=== PATIENT | female | born 1950 | race Caucasian/White ===

== ENCOUNTER 2017-01-31 20:16 | Inpatient (IN) | payer MEDICARE, MEDICAID ==
[2017-01-31] MEDS ORDERED: Fentanyl 100 MCG/2 ML VIAL ONE (20:20)
[2017-01-31 21:12] LABS: Bilirubin Negative (Negative); Blood, Urine Negative (Negative); Glucose, Urine (Dipstick) Negative (Negative); Ketone, Urine Negative (Negative); Nitrite Negative (Negative); Protein, Urine (Dipstick) 100 mg/dL (Neg-Trace)
[2017-01-31 21:14] LABS: #Eosinphils 0.1 thou/uL (0.0-0.7); #Lymphocytes 1.5 thou/uL (1.20-3.40); #Monocytes 0.7 thou/uL (0.11-0.59); #Neutrophils 8.4 thou/uL (1.40-6.50); %Basophils 0.4 % (0.0-1.0); %Lymphocytes 13.8 % (21.0-51.0); %Monocytes 6.2 % (0.0-10.0); Hematocrit 46.4 % (36.0-47.0); Mean Platelet Volume 9.4 fL (7.4-10.4); Red Blood Cell (RBC) Count 5.13 mill/uL (4.20-5.40); White Blood Cell (WBC) Count 10.6 thou/uL (4.8-10.8)
[2017-01-31 21:14] LABS: Bacteria/HPF None Seen HPF (None Seen); Hyaline Casts/LPF 0-3 HYALINE CAST LPF (0-3 Hyaline); RBC/HPF 0-3 HPF (0-3); Squamous Epithelial 0-3 HPF (0-3); WBC/HPF 0-3 HPF (0-3)
[2017-01-31] MEDS ORDERED: Hydrocortisone Sod Succ/PF 100 mg/2 ml Vial ONE (21:18)
[2017-01-31] MEDS ORDERED: cefOXitin Sodium 2 GM, Syringe 1 ML in Sterile Water 10 ML SLOW IVP SCH (21:30)
[2017-01-31] MEDS ORDERED: Hydrocortisone Sod Succ/PF 100 mg/2 ml Vial IVP SCH (21:30)
[2017-01-31] MEDS ORDERED: Ondansetron HCl/PF 4 MG/2 ML Vial ONE (21:31)
--- NOTE | 2017-01-31 21:37 | RAD ---
CHEST 1 VIEW: Date: 01/31/17 HISTORY: Emergency exam. COMPARISON: Chest 1 view dated 09/12/11. FINDINGS: Heart size is enlarged. Air space opacities both lower lobes. No pneumothorax. IMPRESSION: Cardiomegaly with bibasilar air space opacities may be reflective of early edema and atelectasis. Fol low-up two views of chest may be beneficial. POS: H
[2017-01-31] MEDS ORDERED: Fentanyl 250 MCG/5 ML VIAL ONE (21:42)
[2017-01-31] MEDS ORDERED: Midazolam HCl 5 mg/5 ml Vial ONE (21:42)
[2017-01-31 22:21] LABS: Calcium 8.8 mg/dL (7.8-10.44); Chloride 104 mmol/L (98-107)
[2017-01-31 22:22] LABS: Globulin 3.9 g/dL (2.4-3.5); Lactic Acid - Sepsis 2.2 mmol/L (0.5-2.2); Protein, Total 7.6 g/dL (6.0-8.3)
[2017-01-31 22:23] LABS: Anion Gap 14 mmol/L (10-20); Carbon Dioxide 22 mmol/L (23-31)
[2017-01-31] MEDS ORDERED: Propofol 200 MG/20 ML VIAL ONE (22:23)
[2017-01-31] MEDS ORDERED: Lidocaine 2% PF 10 ML AMP (For Epidural Use) ONE (22:23)
[2017-01-31] MEDS ORDERED: Succinylcholine Chloride 20 MG/ML 10 ml SYRINGE FS ONE (22:23)
[2017-01-31] MEDS ORDERED: ePHEDrine/0.9% NaCl/PF SYRINGE 50 mg/10 ml ONE (22:23)
[2017-01-31 22:24] LABS: Bilirubin, Total 0.2 mg/dL (0.2-1.2)
[2017-01-31 22:25] LABS: Alkaline Phosphatase 82 U/L (40-150)
[2017-01-31 22:26] LABS: BUN (Urea Nitrogen) 12 mg/dL (9.8-20.1); Calc. Creatinine Clearance 0 mL/min (70-130); Estimated GFR-MDRD 52
[2017-01-31 22:27] LABS: AST (SGOT) 10 U/L (5-34)
[2017-01-31 22:28] LABS: ALT (SGPT) Less than 7 U/L (8-55)
[2017-01-31 22:32] LABS: Troponin I Less than 0.010 ng/mL (< 0.028)
--- NOTE | 2017-02-01 01:30 | HP ---
CHIEF COMPLAINT: Abdominal pain, nausea, and vomiting. HISTORY OF PRESENT ILLNESS: Ms. Bernard is a 66-year-old woman with a longstanding ventral incision al hernia which suddenly became much more painful and hard about an hour before her presentation to [facility] emergency room. She had episodes of nausea and vomiting at home, but the pain has not gotten any better. Previously, her bowel habits had been normal. She denies fevers or chills. She uses a whee lchair for mobility, although she is able to transfer independently since she has weakness and balanc e control problems since a stroke a few years ago. PAST MEDICAL HISTORY: Ovarian cancer, rheumatoid arthritis, hypertension, cerebrovascular disease, h yperlipidemia, hypothyroidism, and tobacco abuse. PAST SURGICAL HISTORY: Hysterectomy and bilateral oophorectomy, appendectomy, and some superficial c yst removal. SOCIAL HISTORY: The patient still smokes a pack a day and has for over 30 years. She does not drink or use illicit drugs. FAMILY HISTORY: Noncontributory. OUTPATIENT MEDICATIONS: Include Synthroid 200 mcg p.o. daily, prednisone 5 mg p.o. daily, metoprolol 25 mg p.o. b.i.d., hydroxychloroquine 200 mg p.o. b.i.d., tramadol 50 mg p.o. t.i.d., atorvastatin 1 0 mg p.o. daily, amlodipine 10 mg p.o. daily, fluoxetine 40 mg p.o. daily, and leflunomide 20 mg p.o. daily. ALLERGIES: She has no known drug allergies. PHYSICAL EXAMINATION: VITAL SIGNS: Temperature 97.8, heart rate 77, blood pressure 178/91, 93% saturated on room air, margaret thing 14 times a minute. GENERAL: Reveals a morbidly obese woman who appears older than her stated age in obvious discomfort. She is not flushed or toxic in appearance. She is not jaundiced or icteric. HEENT: Unremarkable. NECK: Supple without lymphadenopathy or thyroid nodules. HEART: Regular in its rate and rhythm without murmurs, rubs, or gallops. LUNGS: Clear to auscultation bilaterally. ABDOMEN: Has a large protuberant ventral incisional hernia which is extremely hard and tender to the touch. This is not reducible and attempts by the ER doctor to reduce it with sedation were unsucces sful as well. The skin overlying the central part of the hernia appears slightly dusky. The lateral abdomen is relatively soft and only mildly tender. EXTREMITIES: Cold but with normal capillary refill. I do not appreciate pedal pulses. She has rheu matoid nodules on both elbows. NEUROLOGIC: No focal deficits, but the patient reports diffuse weakness and poor balance making it d ifficult for her to ambulate more than a few steps at baseline. PSYCHIATRIC: Alert and oriented but having difficulty focusing on questions due to pain. LABORATORY DATA: Lab work is still pending. Chest x-ray shows cardiomegaly, no free air, no pulmona ry infiltrates. EKG shows a right bundle branch block and left ventricular hypertrophy, but no acute ST changes. ASSESSMENT: Incarcerated hernia on physical examination, very suspicious for bowel presence within t he hernia and with nausea and vomiting also suggesting an obstructive component. PLAN: I have recommended emergent repair in the operating room with possible bowel resection if the bowel is compromised and possible ostomy if the colon is compromised. The hernia will likely need to be repaired primarily if there is bowel presence, although mesh repair could be considered if no com promised tissue is identified. She is at very high risk for hernia recurrence with or without mesh d ue to her morbid obesity and prednisone use. Other risks include, but are not limited to bleeding, i nfection, risks of anesthesia, damage to nearby structures including bowel, blood vessels, and other structures which may be in the hernia, need for reoperation, and need for mesh explantation in the ev ent of infection. She understands and accepts these risks and wishes to proceed. She has been poste d emergently for the operating room and Mefoxin and Solu-Cortef have been ordered communication consultant to the OR.
[2017-02-01] MEDS ORDERED: Fentanyl 100 MCG/2 ML VIAL ONE (01:35)
[2017-02-01] MEDS ORDERED: Midazolam HCl 2 mg/2 ml Vial ONE (01:35)
[2017-02-01] MEDS ORDERED: Propofol 1,000 MG/100 ML VIAL IV PRN (02:10)
[2017-02-01] MEDS ORDERED: DISCONTINUE PREVIOUS NARCOTIC PAIN MEDICATIONS AND BENZODIAZEPINES FS SCH (02:10)
[2017-02-01] MEDS ORDERED: Fentanyl 20 MCG/ML 250 ML IVPB SCH (02:10)
[2017-02-01] MEDS ORDERED: Lorazepam 2 MG/ML VIAL SLOW IVP PRN (02:10)
[2017-02-01] MEDS ORDERED: Morphine PF 1 MG/ML SYR IVP PRN (02:15)
[2017-02-01 02:27] LABS: Oxyhemoglobin 95.7 % (94.0-97.0); Sodium 139 mmol/L (135-148)
[2017-02-01 02:30] LABS: Mechanical Tidal Volume 500 ml; Mode SIMV; Pressure Support 10 cmH2O; Vent YES
[2017-02-01] MEDS: Sodium Chloride 0.9% 1,000 ML IV SCH ×4 (02:37→23:43)
[2017-02-01 03:17] LABS: #Lymphocytes 1.1 thou/uL (1.20-3.40); #Monocytes 0.6 thou/uL (0.11-0.59); #Neutrophils 16.4 thou/uL (1.40-6.50); %Basophils 0.1 % (0.0-1.0); %Eosinophils 0.1 % (0.0-10.0); %Lymphocytes 6.2 % (21.0-51.0); %Monocytes 3.4 % (0.0-10.0); Hematocrit 46.6 % (36.0-47.0); Mean Platelet Volume 8.2 fL (7.4-10.4); Red Blood Cell (RBC) Count 5.03 mill/uL (4.20-5.40); White Blood Cell (WBC) Count 18.2 thou/uL (4.8-10.8)
[2017-02-01] MEDS: Meropenem 1 GM in Sodium Chloride 0.9% 100 ML IVPB SCH ×3 (03:18→20:09)
[2017-02-01 03:52] LABS: Anion Gap 14 mmol/L (10-20); BUN (Urea Nitrogen) 12 mg/dL (9.8-20.1); Calc. Creatinine Clearance 78 mL/min (70-130); Calcium 8.2 mg/dL (7.8-10.44); Carbon Dioxide 21 mmol/L (23-31); Chloride 105 mmol/L (98-107); Estimated GFR-MDRD 43
--- NOTE | 2017-02-01 04:58 | PDOC.OP ---
Operative Note - Operative Note Operative Note: PROCEDURE: Transverse colectomy and proximal transverse colostomy, abdominal washout and repair of incarcerated strangulated ventral incisional hernia DATE OF PROCEDURE: 01/31/2017 SURGEON: Nathalie Otero M.D. PREOPERATIVE DIAGNOSES: Incarcerated ventral incisional hernia POSTOPERATIVE DIAGNOSIS: Incarcerated strangulated ventral incisional hernia with necrotic transverse colon which had perforated into the mesentery HISTORY: Patient is a 66-year-old morbidly obese woman with multiple medical problems who presented to the emergency room with severe abdominal pain nausea and vomiting of recent onset. She has a chronically incarcerated ventral incisional hernia that had become much more hard and painful a few hours before presentation. Recommendation was made to proceed emergently to the operating room for repair of her incarcerated hernia, since by palpation it appeared to have bowel in it. PROCEDURE IN DETAIL: After informed consent was obtained and appropriate preoperative antibiotics were administered the patient was taken to the operating room where she was placed in supine position and general endotracheal anesthesia was administered. She was prepped and draped in a standard sterile fashion and the midline incision overlying the incarcerated hernia was incised. Dissection was carried down to the hernia sac which was dissected free of the surrounding soft tissues. Colon was visible within the hernia sac as was omentum. The hernia sac was sharply incised and opened, and a foul odor encountered. The colon was found to have multiple dense adhesions to the hernia sac consistent with chronic incarceration. The proximal transverse colon appeared viable but the more distal transverse colon appeared ischemic. The adhesions were taken down carefully, leaving the hernia sac on the colon and omentum in some areas where a safe plane could not be developed. In this way the hernia sac was able to be dissected free of the colon and omentum down to the opening into the abdominal cavity. It became clear as the adhesions were taken down and the colon exposed that the distal transverse colon was frankly gangrenous and would need to be resected. The transition point between viable and nonviable colon was readily apparent and a CHAPARRITA stapler placed across the viable proximal colon and the colon divided at this level. The distal transverse colon within the hernia sac was viable and was also divided with the CHAPARRITA stapler. The mesentery of the ischemic bowel was then divided using LigaSure staying close to the colon wall. As the most necrotic central section was approached fecal staining of the mesentery was visible. On careful examination of the area it appeared that the necrotic colon had perforated into the mesentery itself. As the mesentery in this area was divided a large contained collection of stool within the mesenteric leaf was encountered and suctioned out. Due to the large amount of stool in this contained collection, there was concern that there could be another loop of gangrenous colon which was no longer in the hernia sac and which may have been reduced into the abdominal cavity. For this reason the fascia was incised, superior and inferior to the hernia sac, dividing several bridges of attenuated fascia and connecting multiple small ventral incisional hernias which contained omentum only. The area of contamination was completely evacuated and carefully examined and was found to be contained entirely within the mesentery. It extended almost down to the duodenal loop but did not involve the duodenum or any other loops of bowel. As much contaminated tissue as possible was excised. The area was carefully irrigated to clear taking care not to overfill the cavity and spill into the peritoneum. Once this area was clean, the remainder of the abdominal cavity was copiously irrigated with several liters of warm saline until all return was clear. The NG tube was confirmed to be in good position in the stomach. The liver was smooth to palpation, and the cecum and ascending and proximal transverse colon were normal to palpation and viable in appearance. The distal transverse colon and descending and sigmoid colon were normal to palpation and inspection as well although filled with stool. The small bowel was healthy in appearance with no significant adhesions. A HILL drain was placed into the pelvis and brought out through the left lower quadrant and attention turned to creation of the colostomy. A circular incision was made over the rectus sheath in the right upper quadrant and dissection carried down to the anterior rectus sheath which was incised in a cruciate manner. The muscles were split in the direction of their fibers and the posterior sheath likewise incised in a cruciate fashion. The transverse colon was brought out through the incision and confirmed to be in its correct orientation. This was secured with a [place] and attention turned to closure of the abdomen. The remaining omentum was brought down over the small intestine and Seprafilm placed between this and the anterior abdominal wall. The midline fascia was then closed with running loop continuous PDS suture with excellent technical result. The skin incision was irrigated copiously and the central part of the skin incision loosely reapproximated with 3-0 nylon sutures. The HILL drain was likewise secured with 3- 0 nylon suture. Moist saline soaked gauze placed into the subcutaneous space of the midline incision. This was then draped with another towel and attention turned to maturation of the colostomy. The colon was secured to the anterior rectus sheath circumferentially with Lembert sutures and the staple line excised. An everted miccosukee type colostomy was created and a colostomy appliance secured. The patient was taken intubated to the CCU with plans to extubate her tomorrow if she is stable. Blood loss was minimal and there were no complications. SPECIMEN: Strangulated incarcerated transverse colon and hernia sac
[2017-02-01] MEDS: Hydrocortisone Sod Succ/PF 100 mg/2 ml Vial IVP SCH ×4 (05:42→23:48)
--- NOTE | 2017-02-01 08:57 | RAD ---
PORTABLE AP CHEST XRAY: DATE: 02/01/17. HISTORY: Intubated. Followup evaluation. COMPARISON: 01/31/17. FINDINGS: There has been interval placement of an endotracheal tube with tip overlying the T4 vertebral body an d above the level of the raquel. Nasogastric tube has also been placed in the interim which courses into the left upper quadrant, but the tip is not imaged. The patient is rotated which accentuates th e mediastinal structures and cardiac silhouette, but the cardiac silhouette is probably enlarged. Th ere has been interval increase in perihilar interstitial opacities which may be related to pulmonary edema. There is increased density also present in the retrocardiac region of left lung base with sug gested blunting of the left lateral costophrenic angle. Some of these findings could be related to p atient rotation, but left pleural effusion is not entirely excluded. Vascular calcifications are pre sent in the thoracic aorta. No other interval change. IMPRESSION: 1. Interval placement of the endotracheal tube and nasogastric tube as described above. 2. Interval increase in perihilar interstitial opacities which would be related to pulmonary edema. Continued followup is suggested. 3. Increased density left lung base which could be related to volume loss and/or pleural effusion. POS: [facility]
[2017-02-01] MEDS ORDERED: FLU VACC TS2017-18 (>65YR) 0.5 ML SYRINGE IM ONE (09:00)
[2017-02-01] MEDS ORDERED: Prevnar 13-Val Conj/PF 0.5 ML SYRINGE IM ONE (09:00)
--- NOTE | 2017-02-01 09:08 | CON ---
DATE OF CONSULTATION: 02/01/2017 HISTORY: This is a 66-year-old morbidly obese female with multiple medical problems. She presented yesterday with incarcerated ventral hernia. She went to surgery. She was left intubated on the vent . Please see the surgeon's postop note. PAST MEDICAL HISTORY: She has multiple medical problems as outlined in her previous medical records includes longstanding history of rheumatoid arthritis on long-term steroids, ongoing tobacco abuse, h ypothyroidism, chronic ventral hernia, disabling arthritis wheelchair bound. Previous apparently cer ebrovascular accident. She has severe limitation to activity, in fact, she is wheelchair bound. PAST SURGICAL HISTORY: Hysterectomy, foot, appendix. MEDICATIONS FROM HOME: Tramadol 50, prednisone 5, Enalapril 25, levothyroxine 200, leflunomide 20, P laquenil 200, Prozac 40, atorvastatin 10, aspirin 81, amlodipine 10. She is now on meropenem and steroids. REVIEW OF SYSTEMS: Otherwise unremarkable. PHYSICAL EXAMINATION: GENERAL: Awake, alert, responsive. VITAL SIGNS: Blood pressure 105/64, respirations 18, pulse 80. CHEST: Chest revealed decreased breath sounds without any wheezing. CARDIAC: Normal S1, S2. ABDOMEN: Soft, no masses. LABORATORY: White count 18,000, H&H 14 and 46, platelet count 346. PO2 118, pCO2 56.23, creatinine 1.24, baseline creatinine is 1.0. X-rays shows cardiomegaly. IMPRESSION: 1. Status post lap for incarcerated ventral hernia. 2. Morbid obesity. 3. Severe deconditioning. 4. Chronic obstructive pulmonary disease. 5. Hypothyroidism. 6. Rheumatoid arthritis. PLAN: She will be weaned and extubated. I started neb treatments, supportive care. I will follow while in the ICU. Forty-five minutes critical care time.
[2017-02-01] MEDS: Pantoprazole 40 MG VIAL IVP SCH (09:12)
[2017-02-01] MEDS: Morphine PF 1 MG/ML SYR IV PRN ×5 (14:24→21:58)
[2017-02-01] MEDS ORDERED: Nitroglycerin 0.4 MG TAB (25 Tab Bottle) ONE (16:44)
[2017-02-01] MEDS ORDERED: Nitroglycerin 0.4 MG TAB (25 Tab Bottle) SL SCH (17:00)
--- NOTE | 2017-02-01 17:06 | PRG ---
DATE OF SERVICE: 02/01/2017 This afternoon she has developed chest pain. Her EKG did not show ST segment elevation which showed what appeared to be a junctional rhythm. She characterized her chest pain as 10/10. It is mainly ov er her left breast. When I examined her, she had diffuse pain over her left breast region extending downwards her abdomen. She also had midsternal chest pain to palpation. Her pain so far has not res ponded to morphine or nitroglycerin. I have asked Dr. Mccain and her associates to see the patient to make sure we were not missing anything cardiogenic in nature as the patient has multiple risk factors. Hopefully, this is just post-surgic al pain.
[2017-02-01 17:12] LABS: Troponin I 0.063 ng/mL (< 0.028)
[2017-02-01] MEDS: Enoxaparin Sodium 40 MG/0.4 ML SYRINGE SC SCH (20:09)
--- NOTE | 2017-02-01 23:30 | ADD-CON ---
ADDENDUM: DATE OF ADMISSION: 01/31/2017 DATE OF CONSULTATION: 02/01/2017 INDICATION FOR CONSULTATION: Chest pain in this 66-year-old female. HISTORY OF PRESENT ILLNESS: This is a very pleasant 66-year-old female, was seen by me a couple of y ears ago as part of her preop evaluation undergo repair of an abdominal hernia that the day prior to undergoing surgical procedure. She had a CVA, then the hernia surgery had been postponed and she did not return to the surgery apparently and I do not believe I will see her back in the office either. She apparently was cleared for surgery without any problems. At this time, she yesterday was at [facility] when she developed a sudden onset of abdominal pain, required emergency visit and then subsequently went to emergent surgery due to an incarcerated hernia. She also has a colostomy. I suspect there may be some perforation. We were asked to see her due to some complaints of chest discomfort and als o some EKG changes. Otherwise, the patient seems to be doing quite well. She did have a slight incr ease in her cardiac enzymes and also this may be due to her recent surgery. At this time, she does n ot have any significant anterior chest pain, but has chest wall pain on palpation, which radiates to the back area. Please refer to the notes already dictated and this does not appear to be cardiac at this time and she appears to be otherwise stable from a cardiac standpoint. We will need to follow h er very carefully. She does have a sinus rhythm on the EKG, but also a left anterior fascicular bloc k with some nonspecific ST segment changes. PHYSICAL EXAMINATION: VITAL SIGNS: Her blood pressure at this time is 90/64, heart rate is 79 and irregular shows a sinus rhythm, O2 saturation is 94%, her respiratory rate is 18. She is afebrile. CHEST: Clear to auscultation. CARDIOVASCULAR: Reveals a regular rate and rhythm. ABDOMEN: I actually did not hear bowel sounds, but she has a surgical dressing in place. EXTREMITIES: She has no clubbing, cyanosis, or edema of lower extremity. Pedal pulses are present. NEUROLOGIC: She is awake and oriented. IMPRESSION: 1. Chest pain which does not appear to be cardiac at this time. We will need to follow very careful ly to determine whether or not she has any changes and was told that further recommendations may foll ow. At this time, we will continue her medications very carefully, would be very careful with nitrog lycerin. She does appear to have some decrease in blood pressure after being given nitroglycerin. 2. History of obesity. She appears to be stable. 3. History of recent abdominal surgery for an incarcerated hernia. 4. Hypertension. She is actually somewhat hypotensive at this time. We will be more than happy to continue to follow the patient with you for full details, please refer to notes dictated by the nurse practitioner. We have seen and discussed with patient together.
[2017-02-02] MEDS: Meropenem 1 GM in Sodium Chloride 0.9% 100 ML IVPB SCH ×3 (04:00→19:52)
[2017-02-02] MEDS: Morphine PF 1 MG/ML SYR IV PRN ×6 (04:21→19:52)
[2017-02-02] MEDS: Hydrocortisone Sod Succ/PF 100 mg/2 ml Vial IVP SCH ×3 (05:50→19:52)
--- NOTE | 2017-02-02 06:28 | CON ---
DATE OF CONSULTATION: 02/01/2017 PRIMARY CARE PHYSICIAN: KAYLIE Jorge PRIMARY CRM SOLUTION ARCHITECT: Yady Mccain M.D. CONSULTING PHYSICIAN: Orlando De Dios M.D. REASON FOR CARDIOLOGY CONSULTATION: Chest pain. HISTORY OF PRESENT ILLNESS: Ms. Bernard is a 66-year old female, who has a significant history of ventral hernia and the patient underwent to emergency colectomy and colostomy today on 02/01/2017 and at post-op room, the patient was complaining of the pain in her stomach where she had a repair; however, she developed some pain discomfort under her left breast. She describes the pain as "somebody pushing on me" like pain and especially she feels the pain increasing with palpation at the site and with a deep breath and movement. The pain radiates to her back. She was administered total of 4 mg morphine and nitroglycerin, which have not improved the patient's pain; however, she is very drowsy at this moment. Per family, patient has been complained of knife stabbing-like pain in her left lateral upper torso for a few seconds for several times latest one was last week and patient was complained of stabbing like pain at left lateral upper torso right under her left arm for a few seconds. The patient's family did not notice patient complaining of any other cardiac complaints such as shortness of breath, dizziness, lightheadedness, nausea, or numbness in left arm. The patient complained about dizziness with movement, but denies lightheadedness. The patient underwent stress test in 2014, which showed normal and the patient has echocardiogram in 2014, which shows EF of 50% to 55%, mild left atrial dilation and mild mitral valve regurgitation and trace tricuspid regurgitation. The patient has a history of cerebrovascular accident in 2014 right before patient was supposed to have a hernia repair. The patient's carotid Doppler study shows no evidence of significant stenosis in either internal carotid artery. PAST MEDICAL HISTORY: 1. Ovarian cancer. 2. Rheumatoid arthritis. 3. Hypertension. 4. Cerebrovascular disease in 2013. 5. Hyperlipidemia. 6. Hypothyroidism. 7. Current tobacco abuse. PAST SURGICAL HISTORY: 1. Total hysterectomy. 2. Appendectomy. 3. Ganglion cyst removed from her hand and foot. FAMILY HISTORY: The patient's father has a history of brain aneurysm and the patient's brother has a medical history of hypertension. SOCIAL HISTORY: She is . She is living with one of her daughters. She has 2 daughters who are alive and living well. She used to smoke one pack a day for over 30 years. She denies any EtOH or illicit drug abuse. ALLERGIES: No known drug allergies. HOME MEDICATIONS: Synthroid 200 mcg once a day, prednisone 5 mg once a day, metoprolol 25 mg twice a day, hydroxychloroquine 200 mg twice a day, tramadol 50 mg 3 times a day, atorvastatin 10 mg once a day, amlodipine 10 mg once a day , fluoxetine 40 mg daily, leflunomide 20 mg once a day. REVIEW OF SYSTEMS: The following complete review of systems was negative, unless otherwise mentioned in the HPI or below. I received those informations from patient's daughter who lives with her. Constitutional: Weight loss or gain, sense of well being, ability to conduct usual activities, exercise tolerance. She use walker and wheel chair. She still have abnormal balance. She can walk from bed to the bathroom, but usually she use wheelchair for activity and transportation. Skin/Breast: Rash, itching, changes in hair growth or loss, nail changes. Breasts: Lump, tenderness, swelling, nipple change. Eyes: Vision change, double vision, tearing, blind spots or pain. HEENT: Vertigo, lightheadedness, nose bleeding, cold, obstruction, discharge, dental difficulties, gingival bleeding, dentures, neck stiffness, pain, tenderness, mass in the thyroid or other areas. Positive for chronic headache for a while. Cardiovascular: Palpitations, syncope, dyspnea on exertion, orthopnea, nocturnal dyspnea, edema, cyanosis, heart murmur, varicosis claudication. Respiratory: Pain, shortness of breath, wheezing, stridor, cough , and hemoptysis. Gastrointestinal: Poor appetite, dysphagia, indigestion, abdominal pain, heartburn, eructation, nausea, vomiting, and jaundice, diarrhea , abnormal stool, recent change in bowel habits. Positive for constipation and she takes the fiber. Genitourinary: Dysuria, nocturia, hematuria, oliguria, unusual color of urine, but positive for urgency incontinence. Musculoskeletal : Pain, swelling, redness or heat of muscle or joint, limitation of motion, muscular weakness. Neurologic: Convulsion, paralysis, tremor, incoordination, difficulty with memory of speech, sensory or motor disturbance or muscular coordination. Psychiatric: No emotional problem, anxiety, depression, previous psychiatric care, unusual perception or hallucination. PHYSICAL EXAMINATION: VITAL SIGNS: Blood pressure latest was 88/50, heart rate 81, respiratory rate 24, O2 sat 95%. GENERAL: Well-developed, well-nourished. She is very drowsy at this moment. HEAD: Normocephalic and atraumatic. EYES: Extraocular muscle movement is intact. ENT: Oral and nasal mucosa are moist without lesions. She has an NG tube on the right naris. NECK: No JVD. Neck is supple and normal range of motion. At this time, she does not want to move. LUNGS: Diminished at the bases bilaterally. No wheezing, rales or rhonchi noted. CARDIOVASCULAR: Regular rate and rhythm. Normal S1, S2. There are no S3 or S4. No significant murmur, hives, thrills, bruits or rub noted. There are 2+ pulses in the dorsal pedis, posterior tibial, popliteal and femoral pulses. Carotid pulses are present without bruits or thrills. No edema in her bilateral lower extremities. ABDOMEN: She has an incision the right upper quadrant with a HILL drain. Bowel sounds are upset this moment. MUSCULOSKELETAL: Able to move all extremities. SKIN: Warm and dry. No skin rash, lesion or bruise noted. NEUROLOGIC: She is drowsy possible due to the morphine, but oriented x4, awake. Normal affect and nonfocal. PSYCHIATRIC: Mood and affect normal. EKG: A 12 lead EKG shows accelerated junctional rhythm with retrograde conduction and left anterior fascicular block with heart rate 82. There are no ST segment changes or T-wave inversion. LABORATORY DATA: WBC 18.2, hemoglobin 14.4, hematocrit 46.6, platelets 346. Chemistry: Sodium 136, potassium 4.4, BUN 12, creatinine is 1.26 from 1.06 yesterday. CK-MB was 2.0. Troponin was less than 0.010 and then 0.063 at 16: 30 this afternoon. ASSESSMENT AND PLAN: 1. Chest pain with indeterminate troponin level. A 12-lead EKG does not show any ST segment changes or T-wave inversions or left bundle kelsey block. The patient's indeterminate troponin level is possible due to s/p ventral hernia repair. We would like to repeat the patient's cardiac enzymes and continue to monitor patient's condition. At this moment, we would like to continue to monitor without any other cardiac workup study. 2. Incarcerated ventral hernia with status post emergency repair with colectomy and colostomy. The patient's condition is stable at this time, which is managed by Dr. Otero, general surgeon's team. 3. Hypertension. Actually, the patient's blood pressure tends to be low side, but still stable at this time. We would like to continue to monitor. When the patient's blood pressure increases, we would like to resume the patient's home medications. 4. Hyperlipidemia. Again, once the patient's condition becomes stable, we would like to resume the statin medication. 5. Hypothyroidism. The patient is n.p.o. at this moment. If she continues to be n.p.o. for couple of days, it may be beneficial to start IV thyroid medicines. 6. Tobacco abuse. Tobacco cessation education given to the patient and the family. Thank you very much for allowing Cardiology service to participate in care of this patient We will follow along with the patient care team and make further recommendation as appropriate. GORDO
[2017-02-02] MEDS: Sodium Chloride 0.9% 1,000 ML IV SCH ×2 (06:30→11:38)
[2017-02-02] MEDS: Pantoprazole 40 MG VIAL IVP SCH (08:58)
--- NOTE | 2017-02-02 09:09 | PRG ---
DATE OF SERVICE: 02/02/2017 Yesterday had chest pain. She saw able bodied seaman. This morning abdominal pain. PHYSICAL EXAMINATION: VITAL SIGNS: Pulse 93, blood pressure is elevated at 171/85. Sats are 94, respirations 21. Troponi n was 0.63 elevated, yesterday it was normal. CHEST: Chest reveals decreased breath sounds, no wheezing. CARDIAC: Normal S1, S2. ABDOMEN: Soft, no masses. IMPRESSION: 1. Status post lap, incarcerated hernia. 2. Azotemia. 3. Severe deconditioning. 4. Arthritis. 5. Cerebrovascular accident. PLAN: Cut back on her steroids. Continue antibiotics, PT, supportive care, input from Cardiology.
--- NOTE | 2017-02-02 13:17 | PDOC.CTH ---
<Yolanda Knapp - Last Filed: 02/02/17 13:13> Cardiology Progress Note - Subjective The pt seen and examined. No overnight events. No cardiac complaints. She still complains of pain at surgical site and light discomfort at Lt chest. - Objective Vital Signs Temp Pulse Resp Pulse Ox 02/02/17 11:00 99.3 F 02/02/17 08:00 99.6 F 94 22 H 95 02/02/17 07:00 99.6 F 02/01/17 02/02/17 02/03/17 06:59 06:59 06:59 Intake Total 0 3802 Output Total 190 1530 500 Balance -190 2272 -500 - Physical Examination General/Neuro: alert & oriented x3 Neck: no JVD present Lungs: other: (diminished at bases) Heart: RRR Abdomen: soft Extremities: other: (No edemas) - Telemetry Telemetry Rhythm: SR 90s - Labs Result Diagrams: 02/01/17 02:58 02/01/17 02:58 Troponin/CKMB CK-MB (CK-2) 4.2 ng/mL (0-6.6) 02/01/17 16:28 Troponin I 0.063 ng/mL (< 0.028) H 02/01/17 16:28 - Assessment/Plan 1. CP - resolved; cont. monitor on tele 2. S/p incarcerated ventral hernia repair w/ colectomy and colostomy - stable; managed by Surgeon 3. HTN - stable; cont. monitor, may resume her home medication when her condition is stable 4. Hyperlipidemia - may resume her statin medication when the pt's condition is stable 5. Hypothyroidism - 6. Tobacco abuse - smoking cessation education given to the pt and family Review of Systems - Review of Systems Constitutional: reports: no symptoms reported EENTM: reports: no symptoms reported Respiratory: reports: no symptoms reported Cardiac (ROS): reports: see HPI ABD/GI: reports: see HPI : reports: no symptoms reported <Mik Mccain - Last Filed: 02/02/17 17:27> Cardiology Progress Note - Objective Vital Signs Temp Pulse Resp Pulse Ox 02/02/17 15:00 99.2 F 02/02/17 11:00 99.3 F 02/02/17 08:00 99.6 F 94 22 H 95 02/02/17 07:00 99.6 F 02/01/17 02/02/17 02/03/17 06:59 06:59 06:59 Intake Total 0 3802 Output Total 190 1530 730 Balance -190 2272 -730 - Labs Result Diagrams: 02/01/17 02:58 02/01/17 02:58 Troponin/CKMB CK-MB (CK-2) 4.2 ng/mL (0-6.6) 02/01/17 16:28 Troponin I 0.063 ng/mL (< 0.028) H 02/01/17 16:28 - Assessment/Plan Pt. seen and eval. by me. I agree with the A/P by the SECURITY PATROL DRIVER. The chest pain is atypical and she can have further eval. after she has recovered from her surgery.
[2017-02-02] MEDS: D5 1/2 NS w/20 mEq KCL 1,000 ML IV SCH (17:05)
[2017-02-02] MEDS ORDERED: hydrALAZINE 20 MG/ML VIAL SLOW IVP SCH (18:15)
[2017-02-02] MEDS: Metoprolol Tartrate 25 MG TAB PO SCH (19:52)
[2017-02-02] MEDS: Enoxaparin Sodium 40 MG/0.4 ML SYRINGE SC SCH (19:52)
[2017-02-03] MEDS: D5 1/2 NS w/20 mEq KCL 1,000 ML IV SCH ×4 (01:02→20:11)
[2017-02-03] MEDS: Morphine PF 1 MG/ML SYR IV PRN ×4 (01:52→20:53)
[2017-02-03] MEDS: Meropenem 1 GM in Sodium Chloride 0.9% 100 ML IVPB SCH ×3 (03:01→20:10)
[2017-02-03 05:52] LABS: Anion Gap 11 mmol/L (10-20); BUN (Urea Nitrogen) 14 mg/dL (9.8-20.1); Calc. Creatinine Clearance 136 mL/min (70-130); Calcium 7.9 mg/dL (7.8-10.44); Carbon Dioxide 21 mmol/L (23-31); Chloride 112 mmol/L (98-107); Estimated GFR-MDRD 81
[2017-02-03 05:53] LABS: Band 3 % (5-11); Hematocrit 38.7 % (36.0-47.0); Mean Platelet Volume 8.9 fL (7.4-10.4); Neutrophil 87 % (42-75); Red Blood Cell (RBC) Count 4.16 mill/uL (4.20-5.40); White Blood Cell (WBC) Count 13.7 thou/uL (4.8-10.8)
[2017-02-03 08:00] LABS: Troponin I 0.109 ng/mL (< 0.028)
[2017-02-03] MEDS: Amlodipine 10 MG TAB PO SCH (08:18)
[2017-02-03] MEDS: Metoprolol Tartrate 25 MG TAB PO SCH ×2 (08:18→20:10)
[2017-02-03] MEDS: Hydrocortisone Sod Succ/PF 100 mg/2 ml Vial IVP SCH ×2 (08:18→20:11)
[2017-02-03] MEDS: Pantoprazole 40 MG VIAL IVP SCH (08:19)
--- NOTE | 2017-02-03 08:50 | PRG ---
DATE OF SERVICE: 02/03/2017 This morning she has slight cough, shortness of breath, wheezing. PHYSICAL EXAMINATION: VITAL SIGNS: Blood pressure 150/74, sats are 98 on 2 liters, temperature 99. ABDOMEN: She is still having some abdominal pain. CHEST: Slight cough, chest with bilateral rhonchi. CARDIAC: Normal S1, S2. LABORATORY DATA: White count 13,000. Electrolytes are normal. Troponins 0.109. IMPRESSION: 1. Status post lap. 2. Respiratory failure with secretions. 3. Abnormal troponin. PLAN: I added neb treatments. She has relative adrenal insufficiency. We will continue low dose st eroids for a week. Antibiotics are per Surgery. I will follow.
[2017-02-03 12:36] VITALS: BMI 43.1
--- NOTE | 2017-02-03 16:59 | PDOC.CTH ---
Cardiology Progress Note - Subjective pt. seen and eval. No new issues overnight. No cardiac complaints. - Objective Vital Signs Temp Pulse Resp BP Pulse Ox 02/03/17 16:00 99 F 02/03/17 11:00 99.3 F 02/03/17 08:18 77 151/74 H 02/03/17 07:30 99 F 77 18 98 02/03/17 07:00 99 F Admit Weight 243 lb 6.245 oz Weight 243 lb 6.24 oz 02/02/17 02/03/17 02/04/17 06:59 06:59 06:59 Intake Total 3802 3048 45 Output Total 1530 2180 665 Balance 2272 868 -620 - Physical Examination General/Neuro: alert & oriented x3 Neck: carotid US brisk Lungs: other: (bilat. coarse rhonchi) Heart: PMI normal Abdomen: soft - Labs Result Diagrams: 02/03/17 04:42 02/03/17 04:42 Troponin/CKMB CK-MB (CK-2) 4.2 ng/mL (0-6.6) 02/01/17 16:28 Troponin I 0.109 ng/mL (< 0.028) H 02/03/17 04:42 - Assessment/Plan 1. CP - resolved; cont. monitor on tele 2. S/p incarcerated ventral hernia repair w/ colectomy and colostomy - stable; managed by Surgeon 3. HTN - stable; cont. monitor, may resume her home medication when her condition is stable 4. Hyperlipidemia - may resume her statin medication when the pt's condition is stable 5. Hypothyroidism - 6. Tobacco abuse - smoking cessation education given to the pt and family Cardiac status is stable. I will sign off. if any new changes please let us know and we will be happy to see the pt. again.
[2017-02-03] MEDS: Enoxaparin Sodium 40 MG/0.4 ML SYRINGE SC SCH (20:10)
[2017-02-04] MEDS: Morphine PF 1 MG/ML SYR IV PRN ×4 (02:28→14:34)
[2017-02-04] MEDS: Meropenem 1 GM in Sodium Chloride 0.9% 100 ML IVPB SCH ×3 (04:05→20:36)
[2017-02-04] MEDS: Nitroglycerin 0.4 MG TAB (25 Tab Bottle) SL PRN ×2 (05:42→05:48)
[2017-02-04 05:55] LABS: Troponin I 0.061 ng/mL (< 0.028)
[2017-02-04] MEDS: Metoprolol Tartrate 25 MG TAB PO SCH ×2 (08:10→20:33)
[2017-02-04] MEDS: hydrALAZINE 20 MG/ML VIAL SLOW IVP PRN ×2 (08:11→22:18)
[2017-02-04] MEDS: Amlodipine 10 MG TAB PO SCH (08:11)
[2017-02-04] MEDS: Hydrocortisone Sod Succ/PF 100 mg/2 ml Vial IVP SCH ×2 (08:11→20:33)
[2017-02-04] MEDS: Pantoprazole 40 MG VIAL IVP SCH (08:12)
--- NOTE | 2017-02-04 12:20 | PRG ---
DATE OF SERVICE: 02/04/2017 SUBJECTIVE: Seen for Dr. Otero, 02/04/2017. Christel Bernard is 66-year-old female in [facility], [facility] [place] post 02/01/2017 laparotomy, colon resection, colostomy for gangrenous colon. She had an incarcera chriss ventral incisional hernia. She has wound VAC for midline wound. The patient has not had any saad sea or vomiting. She was n.p.o. LABORATORY DATA: None today. OBJECTIVE: LUNGS: Clear to auscultation. CARDIAC: Regular rate and rhythm without murmur or gallop. ABDOMEN: Soft, nontender. Colostomy healthy, minimal output. ASSESSMENT AND PLAN: Awaiting better GI function. Continue clinical course, ice chips, otherwise n. p.o. and IV fluids. We will reassess tomorrow.
[2017-02-04] MEDS: D5 1/2 NS w/20 mEq KCL 1,000 ML IV SCH ×2 (13:01→20:34)
--- NOTE | 2017-02-04 14:53 | PRG ---
DATE OF SERVICE: 02/04/2017 SUBJECTIVE: Ms. Bernard has no new complaints. OBJECTIVE: VITAL SIGNS: She is afebrile. Respiratory rate is 21, oximetry is 97 on 2 liters, blood pressure 172/91. LUNGS: Clear. HEART: Regular rhythm. ABDOMEN: Soft. LABORATORY DATA: White count 13.7, hemoglobin 11.7, platelets 217. Sodium 140 , potassium 4.4, chloride 112, bicarbonate 20, BUN 14 and creatinine 0.7. IMPRESSION: Status post resection of gangrenous colon secondary to incarcerated hernia. She has an ongoing ileus. She appears weak, but is willing to do physical therapy to try to recover from this. We will continue with current care. Critical care time 30 min. MTDD
[2017-02-04] MEDS: Enoxaparin Sodium 40 MG/0.4 ML SYRINGE SC SCH (20:33)
[2017-02-05] MEDS: Meropenem 1 GM in Sodium Chloride 0.9% 100 ML IVPB SCH ×3 (04:45→20:59)
[2017-02-05] MEDS: D5 1/2 NS w/20 mEq KCL 1,000 ML IV SCH (06:55)
[2017-02-05] MEDS: Morphine PF 1 MG/ML SYR IV PRN ×3 (08:01→17:23)
[2017-02-05] MEDS: Hydrocortisone Sod Succ/PF 100 mg/2 ml Vial IVP SCH ×2 (08:02→20:58)
[2017-02-05] MEDS: Amlodipine 10 MG TAB PO SCH (08:02)
[2017-02-05] MEDS: Metoprolol Tartrate 25 MG TAB PO SCH ×2 (08:03→20:59)
[2017-02-05] MEDS: Pantoprazole 40 MG VIAL IVP SCH (08:03)
--- NOTE | 2017-02-05 08:07 | PRG ---
DATE OF SERVICE: 02/05/2017 Ms. Bernard is doing well. She has not had any nausea or vomiting. She is up in a chair. VITAL SIGNS: Heart rate 68, 213/95, respiratory rate 13. The patient is afebrile. The patient is n.p.o. except for ice chips, does not have an NG tube, ostomy output is very little, u rine output 2280. No labs in the last 48 hours. LUNGS: Clear to auscultation. CARDIAC: Regular rhythm without murmur or gallop. ABDOMEN: Soft, nondistended, obese. Colostomy healthy. ASSESSMENT AND PLAN: The patient is doing well. We will start clear liquids today move her on a t slow. We will transfer her to the floor, increase mobility, up in a chair frequently.
--- NOTE | 2017-02-05 09:10 | PRG ---
DATE OF SERVICE: 02/05/2017 She is doing well at this point, she is about to be transferred to the floor, she had no acute compla ints. PHYSICAL EXAMINATION: VITAL SIGNS: Temperature is 98.8, pulse 70, blood pressure ranging systolic 170, systolic 200. Twen ty-four hour intake 2326, output 2290. HEENT: Unremarkable. NECK: No JVD. CHEST: Clear to auscultation. CARDIAC: S1 and S2 regular. ABDOMEN: Sore around her incision sites, but bowel sounds have returned. EXTREMITIES: No edema. LABORATORY DATA: No new labs were done today. ASSESSMENT: 1. Status post laparotomy for resection of gangrenous colon. 2. Deconditioning. PLAN: Transfer to the floor. Continue current care. No active pulmonary issues at this point. Ple ase recall if further assistance needed.
[2017-02-05] MEDS: hydrALAZINE 20 MG/ML VIAL SLOW IVP PRN (14:47)
[2017-02-05] MEDS: Enoxaparin Sodium 40 MG/0.4 ML SYRINGE SC SCH (21:11)
[2017-02-06] MEDS: D5 1/2 NS w/20 mEq KCL 1,000 ML IV SCH (05:05)
[2017-02-06] MEDS: Meropenem 1 GM in Sodium Chloride 0.9% 100 ML IVPB SCH (05:06)
[2017-02-06 05:10] LABS: Anion Gap 10 mmol/L (10-20); BUN (Urea Nitrogen) 10 mg/dL (9.8-20.1); Calc. Creatinine Clearance 153 mL/min (70-130); Calcium 8.8 mg/dL (7.8-10.44); Carbon Dioxide 23 mmol/L (23-31); Chloride 106 mmol/L (98-107); Estimated GFR-MDRD Greater than 90
[2017-02-06] MEDS: hydrALAZINE 20 MG/ML VIAL SLOW IVP PRN ×2 (05:39→16:28)
[2017-02-06 05:41] LABS: Band 2 % (5-11); Hematocrit 41.3 % (36.0-47.0); Mean Platelet Volume 9.4 fL (7.4-10.4); Neutrophil 84 % (42-75); Red Blood Cell (RBC) Count 4.58 mill/uL (4.20-5.40); White Blood Cell (WBC) Count 10.6 thou/uL (4.8-10.8)
[2017-02-06] MEDS: Amlodipine 10 MG TAB PO SCH (08:16)
[2017-02-06] MEDS: Pantoprazole 40 MG VIAL IVP SCH (08:17)
[2017-02-06] MEDS: Hydrocortisone Sod Succ/PF 100 mg/2 ml Vial IVP SCH ×2 (08:17→21:15)
[2017-02-06] MEDS: Metoprolol Tartrate 25 MG TAB PO SCH ×2 (08:17→21:13)
[2017-02-06] MEDS ORDERED: traMADol HCl 50 MG TAB PO PRN ×2 (10:19→10:20)
--- NOTE | 2017-02-06 15:03 | PRG ---
DATE OF SERVICE: 02/06/2017 SUBJECTIVE: Ms. Bernard has been moved from [facility] yesterday to the surgical floor. OBJECTIVE: GENERAL: She is awake and alert. VITAL SIGNS: 97.1 degrees, 147/81, 71. HEENT: Unremarkable. LUNGS: Clear to auscultation. CARDIAC: Regular rate and rhythm without murmur or gallop. ABDOMEN: Soft, nontender. Colostomy healthy with good gas and stool output. EXTREMITIES: Unremarkable. LABORATORY: White count 10, hemoglobin 12. Basic metabolic profile unremarkable. Sodium 135. ASSESSMENT: Overall, the patient is doing well. We will increase her diet to regular, saline lock h er. We will ask rehabilitation to evaluate her. She needs to be up in a chair most of the day. She is nonambulatory.
[2017-02-06] MEDS: traMADol HCl 50 MG TAB PO PRN (16:44)
[2017-02-06] MEDS: Ibuprofen 600 MG TAB PO PRN (16:44)
[2017-02-06] MEDS: Acetaminophen 500 MG TAB PO PRN (16:44)
[2017-02-06] MEDS: Hydroxychloroquine Sulfate 200 MG TAB PO SCH (21:13)
[2017-02-06] MEDS: Atorvastatin Calcium 10 MG TAB PO SCH (21:13)
[2017-02-06] MEDS: Enoxaparin Sodium 40 MG/0.4 ML SYRINGE SC SCH (21:14)
[2017-02-07] MEDS: hydrALAZINE 20 MG/ML VIAL SLOW IVP PRN (06:22)
[2017-02-07] MEDS: Levothyroxine Sodium 100 MCG TAB PO SCH (06:22)
--- NOTE | 2017-02-07 08:31 | EKG ---
Test Reason : Blood Pressure : / mmHG Vent. Rate : 082 BPM Atrial Rate : 081 BPM P-R Int : 000 ms QRS Dur : 108 ms QT Int : 424 ms P-R-T Axes : 000 -51 071 degrees QTc Int : 495 ms Accelerated Junctional rhythm with retrograde conduction Left anterior fascicular block Nonspecific ST abnormality Prolonged QT Abnormal ECG When compared with ECG of 31-JAN-2017 20:40, (Unconfirmed) Junctional rhythm has replaced Sinus rhythm Minimal criteria for Septal infarct are no longer Present Nonspecific T wave abnormality has replaced inverted T waves in Lateral leads Confirmed by Crissy COLLINS ([id number]) on 02/07/2017 8:31:05 AM Referred By: DANYELL Confirmed By:Crissy COLLINS
[2017-02-07] MEDS: Amlodipine 10 MG TAB PO SCH (08:36)
[2017-02-07] MEDS: Aspirin 81 mg Enteric Coated Tablet PO SCH (08:36)
[2017-02-07] MEDS: FLUoxetine HCl 20 MG CAP PO SCH (08:37)
[2017-02-07] MEDS: Hydrocortisone Sod Succ/PF 100 mg/2 ml Vial IVP SCH ×2 (08:37→20:04)
[2017-02-07] MEDS: Hydroxychloroquine Sulfate 200 MG TAB PO SCH ×2 (08:38→20:04)
[2017-02-07] MEDS: Metoprolol Tartrate 25 MG TAB PO SCH ×2 (08:39→20:07)
[2017-02-07] MEDS: Leflunomide 10 mg Tablet PO SCH (08:39)
[2017-02-07] MEDS: predniSONE 5 MG TAB PO SCH (08:39)
[2017-02-07] MEDS: Polyethylene Glycol 3350 17 GM Packet PO SCH (08:55)
[2017-02-07] MEDS ORDERED: Polyethylene Glycol 3350 17 GM Packet PO SCH (09:00)
[2017-02-07] MEDS ORDERED: Non-Formulary Item 1 EACH (Levothyroxine Sodium [Levothyroxine Sodium] 200 MCG) PO SCH (09:00)
[2017-02-07] MEDS ORDERED: Non-Formulary Item 1 EACH (Fluoxetine Hcl [Prozac] 40 MG) PO SCH (09:00)
[2017-02-07] MEDS ORDERED: Aspirin 325 mg Enteric Coated Tablet PO SCH (09:00)
--- NOTE | 2017-02-07 10:28 | PRG ---
DATE OF SERVICE: 02/07/2007 SUBJECTIVE: Ms. Bernard is doing well today. She is tolerating a regular diet. OBJECTIVE: VITAL SIGNS: 98 degrees, 63, 176/82. HEENT: Unremarkable. LUNGS: Clear to auscultation. CARDIAC: Regular rate and rhythm without murmur or gallop. ABDOMEN: Soft, nontender. Colostomy healthy. ASSESSMENT AND PLAN: The patient is doing well. Her labs were normal yesterday. As a baseline, fredis dale transfers herself at home and is nonambulatory. She is not able to transfer herself. She will need to go to rehab for a short stay. She is ready to go to rehab tomorrow. She can be discharged t o rehabilitation for reconditioning and eventual discharge home. Will need to discontinue her García, rehab screening has been submitted.
[2017-02-07] MEDS: Enoxaparin Sodium 40 MG/0.4 ML SYRINGE SC SCH (20:04)
[2017-02-07] MEDS: Atorvastatin Calcium 10 MG TAB PO SCH (20:07)
[2017-02-07] MEDS: Acetaminophen 500 MG TAB PO PRN (20:11)
[2017-02-07] MEDS: traMADol HCl 50 MG TAB PO PRN (20:12)
[2017-02-07] MEDS: Ibuprofen 600 MG TAB PO PRN (20:12)
[2017-02-08] MEDS: Levothyroxine Sodium 100 MCG TAB PO SCH (05:53)
[2017-02-08] MEDS: Ibuprofen 600 MG TAB PO PRN (09:05)
[2017-02-08] MEDS: traMADol HCl 50 MG TAB PO PRN ×2 (09:05→18:13)
[2017-02-08] MEDS: Acetaminophen 500 MG TAB PO PRN (09:05)
[2017-02-08] MEDS: FLUoxetine HCl 20 MG CAP PO SCH (09:06)
[2017-02-08] MEDS: Hydroxychloroquine Sulfate 200 MG TAB PO SCH (09:06)
[2017-02-08] MEDS: Polyethylene Glycol 3350 17 GM Packet PO SCH (09:07)
[2017-02-08] MEDS: Aspirin 81 mg Enteric Coated Tablet PO SCH (09:07)
[2017-02-08] MEDS: Amlodipine 10 MG TAB PO SCH (09:07)
[2017-02-08] MEDS: predniSONE 5 MG TAB PO SCH (09:07)
[2017-02-08] MEDS: Metoprolol Tartrate 25 MG TAB PO SCH (09:08)
[2017-02-08] MEDS: Leflunomide 10 mg Tablet PO SCH (09:10)
[2017-02-08] MEDS: Hydrocortisone Sod Succ/PF 100 mg/2 ml Vial IVP SCH (09:11)
[2017-02-08 17:02] VITALS: BP 143/78; TEMP 97.6
--- NOTE | 2017-02-09 14:43 | DIS ---
DATE OF ADMISSION: 01/31/2017 DATE OF DISCHARGE: 02/08/2017 FINAL DIAGNOSES: 1. Incarcerated strangulated perforated recurrent ventral hernia containing necrotic transverse colo n with contained perforation into the mesentery of the transverse colon. 2. Rheumatoid arthritis, steroid dependent. 3. Hypertension. 4. Cerebrovascular disease. 5. Hyperlipidemia. 6. Hypothyroidism. 7. Ongoing tobacco abuse. 8. Chronic obstructive pulmonary disease. 9. Super morbid obesity. PROCEDURES: 1. Exploratory laparotomy with transverse colon resection, proximal transverse colostomy, and repair of multiple recurrent ventral hernias on 01/31/2017. 2. Pulmonary consult for vent management postoperatively. 3. Cardiology consult for atypical chest pain. HISTORY: Ms. Bernard is a 66-year-old woman with multiple medical issues as described above, who pr esented to the ER with a history of sudden onset of severe abdominal pain centered on her longstandin g hernia. Her hernia was extremely tender and irreducible and had bowel present within the incarcera chriss hernia on physical examination. The recommendation was made to proceed emergently to the operati ng room for repair and possible resection. The patient was taken to the operating room where she was found to have necrotic transverse colon within the hernia sac with perforation into the mesentery. This perforation was contained. She underwent transverse colectomy and proximal transverse colostomy with abdominal washout and suture on the repair of the recurrent ventral hernia. Postoperatively, ti goodman was taken to the intensive care unit on the ventilator and Pulmonary Medicine was consulted for ve nt management. She was extubated fairly quickly, but then developed some atypical chest pain, so Car diology was consulted, and they did not feel that her pain was cardiac in origin and it resolved. Nohemi muhammad fully improved medically and was able to be transferred out of the unit when she had function of he r colostomy, her diet was advanced and she tolerated this well. By 02/08/2017, she was tolerating a diet and at her baseline in terms of function. She is nonambulatory at baseline and only transfers o n her own. She was discharged to rehab for reconditioning with a VAC dressing in place for her abdom inal incision. DISCHARGE MEDICATIONS: Include Lovenox, ibuprofen, Tylenol, DuoNebs, MiraLax, prednisone, Prozac, Sy nthroid, leflunomide, Plaquenil, Lipitor, Lopressor, Norvasc, tramadol, and aspirin.
== END 2017-02-08 18:31 | DRG 329 ==
LOC: ERS 20:16 → SDC 20:16 → ERS 22:19 → SDC 22:19 → CCU 23:21 → SURG B 02-05 15:49
PROVIDERS: ADMIT Surgery; ATTEND Surgery
PROC: 0DTL0ZZ Resection of Transverse Colon, Open Approach (ICD-10-PCS; principal; 2017-01-31)
PROC: 0D1L0Z4 Bypass Transverse Colon to Cutaneous, Open Approach (ICD-10-PCS; 2017-01-31)
PROC: 0WQF0ZZ Repair Abdominal Wall, Open Approach (ICD-10-PCS; 2017-01-31)
PROC: 5A1935Z Respiratory Ventilation, Less than 24 Consecutive Hours (ICD-10-PCS; 2017-02-01)
PROC: 0BH17EZ Insertion of Endotracheal Airway into Trachea, Via Natural or Artificial Opening (ICD-10-PCS; 2017-02-01)
PROC: 0BP1XDZ Removal of Intraluminal Device from Trachea, External Approach (ICD-10-PCS; 2017-02-01)
PROC: 5A09557 Assistance with Respiratory Ventilation, Greater than 96 Consecutive Hours, Continuous Positive Airway Pressure (ICD-10-PCS; 2017-02-01)
DX: K43.7 Other and unspecified ventral hernia with gangrene (principal); J96.90 Respiratory failure, unspecified, unspecified whether with hypoxia or hypercapnia; K63.1 Perforation of intestine (nontraumatic); Z68.41 Body mass index [BMI] 40.0-44.9, adult; R13.10 Dysphagia, unspecified; E66.01 Morbid (severe) obesity due to excess calories; J44.9 Chronic obstructive pulmonary disease, unspecified; I10 Essential (primary) hypertension; E03.9 Hypothyroidism, unspecified; E78.5 Hyperlipidemia, unspecified; M06.9 Rheumatoid arthritis, unspecified; F17.210 Nicotine dependence, cigarettes, uncomplicated; I67.9 Cerebrovascular disease, unspecified; K66.0 Peritoneal adhesions (postprocedural) (postinfection); R79.89 Other specified abnormal findings of blood chemistry; R32 Unspecified urinary incontinence; R74.8 Abnormal levels of other serum enzymes; Z86.73 Personal history of transient ischemic attack (TIA), and cerebral infarction without residual deficits; Z85.43 Personal history of malignant neoplasm of ovary; Z82.49 Family history of ischemic heart disease and other diseases of the circulatory system; Z99.3 Dependence on wheelchair; Z79.52 Long term (current) use of systemic steroids
CPT/HCPCS: 36415; 51702; 71010; 80048; 80053; 81003; 81015; 82553; 82805; 83605; 84484; 85025; 88307; 93005; 93010; 94002; 96365; 96375; A4216; A4353; C9113; G8978-GP-CN; G8979-GP-CL; G8987-GO-CL; G8988-GO-CJ; J0360; J0694; J1650; J1720; J2001; J2185; J2250; J2270; J2274; J2405; J2704; J3010; J7050; J7620

== ENCOUNTER 2017-03-12 10:08 | Outpatient (CLI) | payer MEDICARE, MEDICAID ==
--- NOTE | 2017-03-12 16:00 | CT ---
CT ABDOMEN AND PELVIS PERFORMED WITH CONTRAST ENHANCEMENT: HISTORY: The patient is status post colon resection. She has an abdominal wall wound that is not healing. COMPARISON: CT examination from 10/16/2013. FINDINGS: ABDOMEN: The lung bases are clear. The liver, spleen, pancreas, and gallbladder regions appear unremarkable. The right and left adrenal glands and the right and left kidneys are normal in size. There is no sig nificant periaortic or mesenteric adenopathy. Since the prior examination, the patient has undergone a partial colectomy. There is a right-sided c olostomy now present. There has been repair of the more midline ventral hernia since that prior exam ination. There is a long segment of left colon, which is isolated. Surgical dany are present at the mid transverse colon level. The descending and sigmoid colon are all decompressed, other than so me stool within the rectum. There is a multiloculated fluid density collection, which is associated with the hernia repair. It has air within it. The largest portion of this measures approximately 3. 9 cm in maximum diameter. There is some intraabdominal extension of a small fluid collection, best s een on axial image 52. This measures approximately 12 x 26 mm in size. In addition, there is a fair ly well defined, low attenuation, mesenteric density, which measures 7.8 cm in diameter. It has fat interspersed within the collection and what appears to be fluid density. This is close to the colost estephania site. It does not appear to be related to either the colostomy or the abdominal wall hernia repa ir and probably represents an area of omental fat infarct. PELVIS: There is bladder wall thickening. There is no adenopathy, mass, or free fluid. IMPRESSION: 1. Postoperative changes with evidence of a midline ventral hernia repair with a slightly multilocul ated superficial fluid collection with air seen at the region of the repair, which would suggest absc ess. There is minimal extension into the abdomen with a small fluid collection seen directly beneath this area, which does extend into the anterior abdomen. It only measures 12 x 26 mm in size. 2. Area of omental infarct in the right abdomen. This is near the right-sided colostomy. 3. Bladder wall thickening. POS: [facility]
[2017-03-12] MEDS ORDERED: Iopamidol 370 76% 100 ML VIAL ONE (16:55)
== END 2017-03-12 10:09 | disposition home or self-care (01) ==
LOC: CT 10:08
PROVIDERS: ATTEND Specialist
DX: T81.89XD Other complications of procedures, not elsewhere classified, subsequent encounter (principal); Z98.890 Other specified postprocedural states; N32.89 Other specified disorders of bladder
CPT/HCPCS: 74177; 82565

== ENCOUNTER 2017-04-04 15:22 | Emergency (ER) | payer MEDICARE, MEDICAID ==
--- NOTE | 2017-04-04 15:46 | RAD ---
SINGLE VIEW OF THE CHEST: Comparison: 02-01-17 History: Abdominal pain, chest pain. FINDINGS: Single view of the chest shows an enlarged but stable cardiomediastinal silhouette. Atherosclerotic c alcifications are seen in the aorta. There is no evidence of consolidation, mass, or pleural effusion . Degenerative changes are seen in the spine. IMPRESSION: 1. No evidence of acute cardiopulmonary disease. 2. Atherosclerotic disease. POS: [facility]
[2017-04-04 16:25] LABS: #Basophils 0.1 thou/uL (0.0-0.2); #Eosinphils 0.1 thou/uL (0.0-0.7); #Lymphocytes 1.4 thou/uL (1.20-3.40); #Monocytes 0.6 thou/uL (0.11-0.59); #Neutrophils 8.7 thou/uL (1.40-6.50); %Basophils 0.8 % (0.0-1.0); %Lymphocytes 12.9 % (21.0-51.0); %Monocytes 5.5 % (0.0-10.0); %Neutrophils 79.7 % (42.0-75.0); Hemoglobin 12.9 g/dL (12.0-16.0); Mean Corpuscular HGB CONC 32.6 g/dL (32.0-36.0); Mean Corpuscular Hemoglobin 28.7 pg (27.0-31.0); Mean Corpuscular Volume 88.3 fl (81.0-99.0); Mean Platelet Volume 8.2 fL (7.4-10.4); Platelet Count 299 thou/uL (130-400); RBC Distribution Width 15.3 % (11.5-14.5); Red Blood Cell (RBC) Count 4.48 mill/uL (4.20-5.40); White Blood Cell (WBC) Count 10.9 thou/uL (4.8-10.8)
[2017-04-04 16:48] LABS: ALT (SGPT) 8 U/L (8-55); AST (SGOT) 11 U/L (5-34); Albumin 3.6 g/dL (3.4-4.8); Alkaline Phosphatase 89 U/L (40-150); Anion Gap 15 mmol/L (10-20); BUN (Urea Nitrogen) 14 mg/dL (9.8-20.1); Bilirubin, Total 0.3 mg/dL (0.2-1.2); Calc. Creatinine Clearance 0 mL/min (70-130); Calcium 9.5 mg/dL (7.8-10.44); Carbon Dioxide 24 mmol/L (23-31); Chloride 104 mmol/L (98-107); Estimated GFR-MDRD 58; Globulin 4.1 g/dL (2.4-3.5); Glucose 94 mg/dL (80-115); Lipase 18 U/L (8-78); Potassium 4.1 mmol/L (3.5-5.1); Protein, Total 7.7 g/dL (6.0-8.3); Sodium 139 mmol/L (136-145)
[2017-04-04 16:52] LABS: CKMB 1.1 ng/mL (0-6.6); Troponin I 0.013 ng/mL (< 0.028)
[2017-04-04] MEDS ORDERED: ISOVUE-370 76%-LOCM 1 ML ONE (17:02)
[2017-04-04 18:22] LABS: Bilirubin Negative (Negative); Blood, Urine Negative (Negative); Clarity CLEAR (Clear); Glucose, Urine (Dipstick) Negative (Negative); Leukocyte Negative (Negative); Nitrite Negative (Negative); Protein, Urine (Dipstick) 30 mg/dL (Neg-Trace); Specific Gravity, Urine 1.008 (1.002-1.036); Urobilinogen 0.2 mg/dL (0.2-1.0)
[2017-04-04 18:24] LABS: Bacteria/HPF Rare-Few HPF (None Seen); Hyaline Casts/LPF 0-3 HYALINE CAST LPF (0-3 Hyaline); Pathc Cast-AUWi Flag 0.13 (0-2.49); RBC/HPF 0-3 HPF (0-3); WBC/HPF 0-3 HPF (0-3)
--- NOTE | 2017-04-04 19:53 | CT ---
CT ABDOMEN AND PELVIS WITH CONTRAST: Technique: Multiple axial tomograms were obtained through the abdomen and pelvis with IV enhancement. History: Abdominal pain. Right sided abdominal pain. Comparison: 03-12-17. That exam revealed post op hernia repair changes in the anterior abdominal wall with a small abscess collection along the anterior abdominal wall within the subcutaneous tissues. T hat exam also described a 7-8 cm mass like density in the right abdomen with fat density interspersed . A mesenteric infarct was suspected. FINDINGS: Lung bases are clear. Liver, spleen, pancreas unremarkable. Adrenal glands and kidneys unremarkable. No hydronephrosis. Right ostomy is again noted. There is a drainage catheter with packing in the anterior subcutaneous tissues beside the previously described abscess. There is air at this site, however, no fluid collection is seen today. The circumscribed mass density in the right abdomen described previously with interspersed fat densit y is again seen. This mass density has enlarged since the prior exam and now measures up to 10 cm. It previously measured approximately 8 cm greatest dimension in the axial plane. It remains well circum scribed and continues to have mixed density with areas of fat density and other areas of low attenuat ion which could represent complex fluid or soft tissue. Mesenteric infarct was previously given as a possible etiology of this density. There is no evidence of small bowel obstruction. No other finding or interval change. IMPRESSION: 1. Circumscribed mixed density mass in the right abdomen has increased in size since 03-12-17 exam. M esenteric infarct was suggested previously as an etiology. Enlargement may indicate a more aggressive process. Fat containing neoplasm such as liposarcoma is not excluded. 2. Other nonacute findings seen as described above. Discussed with ER Physician. POS: [facility]
--- NOTE | 2017-04-17 16:57 | EKG ---
Test Reason : Blood Pressure : / mmHG Vent. Rate : 058 BPM Atrial Rate : 058 BPM P-R Int : 154 ms QRS Dur : 102 ms QT Int : 486 ms P-R-T Axes : 051 -41 -07 degrees QTc Int : 477 ms Sinus bradycardia Left axis deviation Abnormal ECG Flipped T waves V1-V3 Confirmed by CARRIE ARTEAGA ([id number]), editor map JEREMIE SANZ ([id number]) on 04/17/2017 4:56:49 PM Referred By: Confirmed By:CARRIE ARTEAGA
== END 2017-04-04 19:17 | disposition home or self-care (01) ==
LOC: ERS 15:22
DX: L08.9 Local infection of the skin and subcutaneous tissue, unspecified (principal); E03.9 Hypothyroidism, unspecified; I10 Essential (primary) hypertension; M06.9 Rheumatoid arthritis, unspecified; F32.9 Major depressive disorder, single episode, unspecified; F17.210 Nicotine dependence, cigarettes, uncomplicated; Z79.52 Long term (current) use of systemic steroids; Z79.891 Long term (current) use of opiate analgesic; Z79.899 Other long term (current) drug therapy; Z86.73 Personal history of transient ischemic attack (TIA), and cerebral infarction without residual deficits
CPT/HCPCS: 71045; 74177; 80053; 81003; 81015; 82553; 83690; 84484; 85025; 93005; 94760

== ENCOUNTER 2017-04-07 18:35 | Inpatient (IN) | payer MEDICARE, MEDICAID ==
[2017-04-07 19:54] LABS: #Eosinphils 0.1 thou/uL (0.0-0.7); #Lymphocytes 1.1 thou/uL (1.20-3.40); #Monocytes 0.5 thou/uL (0.11-0.59); #Neutrophils 2.2 thou/uL (1.40-6.50); %Eosinophils 1.5 % (0.0-10.0); %Lymphocytes 28.6 % (21.0-51.0); %Neutrophils 55.9 % (42.0-75.0); Hemoglobin 13.6 g/dL (12.0-16.0); Mean Corpuscular HGB CONC 32.1 g/dL (32.0-36.0); Mean Corpuscular Hemoglobin 28.2 pg (27.0-31.0); Mean Corpuscular Volume 87.9 fl (81.0-99.0); Mean Platelet Volume 8.6 fL (7.4-10.4); Platelet Count 232 thou/uL (130-400); RBC Distribution Width 15.3 % (11.5-14.5); White Blood Cell (WBC) Count 3.9 thou/uL (4.8-10.8)
[2017-04-07 20:16] LABS: ALT (SGPT) 8 U/L (8-55); AST (SGOT) 19 U/L (5-34); Albumin 3.9 g/dL (3.4-4.8); Alkaline Phosphatase 91 U/L (40-150); Anion Gap 19 mmol/L (10-20); BUN (Urea Nitrogen) 15 mg/dL (9.8-20.1); Bilirubin, Total 0.3 mg/dL (0.2-1.2); Calc. Creatinine Clearance 0 mL/min (70-130); Calcium 9.5 mg/dL (7.8-10.44); Carbon Dioxide 17 mmol/L (23-31); Chloride 99 mmol/L (98-107); Estimated GFR-MDRD 45; Globulin 4.5 g/dL (2.4-3.5); Glucose 73 mg/dL (80-115); Lipase 28 U/L (8-78); Potassium 4.3 mmol/L (3.5-5.1); Protein, Total 8.4 g/dL (6.0-8.3); Sodium 131 mmol/L (136-145)
[2017-04-07] MEDS ORDERED: Ondansetron HCl/PF 4 MG/2 ML Vial ONE (21:39)
[2017-04-07] MEDS ORDERED: Ondansetron ODT 4 MG TAB SL PRN (23:41)
[2017-04-07] MEDS ORDERED: Ondansetron HCl/PF 4 MG/2 ML Vial IVP PRN (23:41)
[2017-04-07] MEDS: Sodium Chloride 0.9% 1,000 ML IV SCH (23:55)
[2017-04-08 00:06] VITALS: BMI 37.4
[2017-04-08] MEDS: Sodium Chloride 0.9% 1,000 ML IV SCH ×3 (06:37→15:23)
[2017-04-08 10:47] LABS: Anion Gap 12 mmol/L (10-20); BUN (Urea Nitrogen) 12 mg/dL (9.8-20.1); Calc. Creatinine Clearance 89 mL/min (70-130); Calcium 8.1 mg/dL (7.8-10.44); Carbon Dioxide 18 mmol/L (23-31); Chloride 107 mmol/L (98-107); Estimated GFR-MDRD 57; Glucose 81 mg/dL (80-115); Potassium 3.9 mmol/L (3.5-5.1); Sodium 133 mmol/L (136-145)
[2017-04-08] MEDS ORDERED: Ondansetron HCl/PF 4 MG/2 ML Vial IVP PRN (11:35)
--- NOTE | 2017-04-08 12:01 | RAD ---
ACUTE ABDOMINAL SERIES: Indication: Nausea, vomiting. FINDINGS: Lungs are clear. No pleural effusion or pneumothorax is evident. Heart size is mildly enlarged. Pulmo nary vasculature is within normal limits. No definite free air is noted. Bowel gas pattern is unobstr ucted. There are scattered surgical clips within the left hemiabdomen. There are scattered vascular c alcifications. There is density within the left upper quadrant of the abdomen which may reflect intra luminal contrast within the bowel. Left lateral decubitus demonstrates no definite free air overlying the right hemidiaphragm. There is a right upper quadrant ostomy. There are scattered vascular calcif ications not involving the abdominal pelvic vasculature. There is a radiopaque density overlying the left lower quadrant abdominal wall. IMPRESSION: No definite acute abnormality. POS: [facility]
[2017-04-08] MEDS: Hydrocortisone Sod Succ/PF 100 mg/2 ml Vial IVP SCH ×2 (15:18→21:11)
[2017-04-08] MEDS: traMADol HCl 50 MG TAB PO PRN (15:45)
[2017-04-08] MEDS: Metoprolol Tartrate 25 MG TAB PO SCH (21:12)
[2017-04-08] MEDS: Hydroxychloroquine Sulfate 200 MG TAB PO SCH (21:12)
[2017-04-09] MEDS: Sodium Chloride 0.9% 1,000 ML IV SCH ×2 (05:10→20:13)
[2017-04-09 05:36] LABS: #Lymphocytes 0.9 thou/uL (1.20-3.40); #Monocytes 0.3 thou/uL (0.11-0.59); #Neutrophils 0.9 thou/uL (1.40-6.50); %Basophils 0.7 % (0.0-1.0); %Eosinophils 0.4 % (0.0-10.0); %Lymphocytes 43.2 % (21.0-51.0); %Monocytes 12.8 % (0.0-10.0); %Neutrophils 42.9 % (42.0-75.0); Hemoglobin 10.9 g/dL (12.0-16.0); Mean Corpuscular HGB CONC 31.8 g/dL (32.0-36.0); Mean Corpuscular Volume 87.9 fl (81.0-99.0); Mean Platelet Volume 8.8 fL (7.4-10.4); Platelet Count 165 thou/uL (130-400); RBC Distribution Width 15.1 % (11.5-14.5); Red Blood Cell (RBC) Count 3.89 mill/uL (4.20-5.40); White Blood Cell (WBC) Count 2.1 thou/uL (4.8-10.8)
[2017-04-09 05:44] LABS: Anion Gap 12 mmol/L (10-20); BUN (Urea Nitrogen) 12 mg/dL (9.8-20.1); Calc. Creatinine Clearance 106 mL/min (70-130); Calcium 8.3 mg/dL (7.8-10.44); Carbon Dioxide 19 mmol/L (23-31); Chloride 111 mmol/L (98-107); Estimated GFR-MDRD 69; Glucose 98 mg/dL (80-115); Potassium 4.1 mmol/L (3.5-5.1); Sodium 138 mmol/L (136-145)
[2017-04-09] MEDS ORDERED: Levothyroxine 100 MCG SDV IVP SCH (06:00)
[2017-04-09] MEDS: Levothyroxine Sodium 100 MCG TAB PO SCH (06:40)
[2017-04-09] MEDS: Leflunomide 10 mg Tablet PO SCH (08:54)
[2017-04-09] MEDS: Hydroxychloroquine Sulfate 200 MG TAB PO SCH ×2 (08:55→21:02)
[2017-04-09] MEDS: Hydrocortisone Sod Succ/PF 100 mg/2 ml Vial IVP SCH ×3 (08:55→21:01)
[2017-04-09] MEDS: Amlodipine 10 MG TAB PO SCH (08:55)
[2017-04-09] MEDS: Metoprolol Tartrate 25 MG TAB PO SCH ×2 (08:55→20:44)
[2017-04-09] MEDS: traMADol HCl 50 MG TAB PO PRN (12:31)
--- NOTE | 2017-04-09 20:35 | HP ---
CHIEF COMPLAINT: Nausea, vomiting, diarrhea. HISTORY OF PRESENT ILLNESS: Ms. Bernard is a 66-year-old woman with a recent history of a transvers e colectomy for incarcerated strangulated hernia. She has an end colostomy and had been doing well a t home except for some wound healing issues and some subcutaneous abscesses. However, about 3 days p rior to her admission, she developed some nausea and diarrhea. The output from her colostomy is now liquid and she has to empty more frequently than usual. She has not been running any fevers. She do es have some crampy abdominal pain, but nothing focal. Her nausea has been such that she is unable t o tolerate any solid food for 2 days, although she has kept down some liquids. She was evaluated the night prior to admission in the emergency room and was found to have some mild dehydration with a bu mp in her BUN and creatinine and she was admitted for hydration and observation. Today, she is feeli ng better. She is not nauseated at this time, although she still has some mild abdominal pain and he r colostomy output is still liquid. She did have stool studies sent from the ER and those have all c ome back negative. Specifically, she is negative for C. diff, Campylobacter, Shiga toxin, and E. col i O157. Preliminary blood cultures were also negative. 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 PAST SURGICAL HISTORY: Includes appendectomy, bilateral oophorectomy, transverse colectomy and end c olostomy. SOCIAL HISTORY: Includes tobacco abuse. No alcohol or drug use. FAMILY HISTORY: Noncontributory. ALLERGIES: She has no known drug allergies. OUTPATIENT MEDICATIONS: Include Synthroid 200 mcg p.o. daily, prednisone 5 mg daily, metoprolol 25 m g p.o. b.i.d., hydroxychloroquine 200 mg p.o. b.i.d., tramadol 50 mg p.o. t.i.d., atorvastatin 10 mg p.o. daily, amlodipine 10 mg p.o. daily, fluoxetine 40 mg p.o. daily and leflunomide 20 mg p.o. daily . PHYSICAL EXAMINATION: VITAL SIGNS: She has been afebrile since her admission to the hospital. Heart rate is in the 80s, b lood pressure moderately elevated. She has not taken any of her oral medications in 2 days. GENERAL: Reveals a chronically ill appearing elderly woman, in no acute distress. She is not flushe d or toxic in appearance. She is not jaundiced or icteric. HEENT: Unremarkable. NECK: Supple, without lymphadenopathy or thyroid nodules. HEART: Regular in its rate and rhythm without murmurs, rubs or gallops. LUNGS: Clear to auscultation anteriorly, although breath sounds are distant due to body habitus. ABDOMEN: Soft and nondistended. Her I&D site to the left of her midline incision is patent. There is no expressible purulence from this area. Her midline incisions are clean and granulating. Her co lostomy is healthy in appearance. A large amount of liquid stool in the bag. She does have some mil d tenderness to palpation more on the left than on the right. She does not exhibit rigidity, rebound or guarding. EXTREMITIES: Warm and well perfused with slight ankle edema. NEUROLOGIC: No focal deficits, but the patient has chronic diffuse weakness and poor balance and is basically only able to transfer or walk a few steps. PSYCHIATRIC: Alert, oriented, and appropriate. LABORATORY DATA AND IMAGING: White count is normal at 3.9, hematocrit 42.2 which is up a bit from he r baseline, platelets 232, BUN and creatinine mildly elevated at 15 and 1.2. Other electrolytes are unremarkable and LFTs are normal. She does not have any imaging performed in the emergency room. Nohemi muhammad had a CT scan done on the , which revealed slight enlargement of the abdominal mass. This was felt to likely be an omental infarct, but the liposarcoma is within the differential diagnosis. ASSESSMENT AND PLAN: Likely viral gastroenteritis with resultant dehydration and acute renal insuffi ciency. She has received IV fluids in the emergency room and since her admission to the hospital, it is difficult to quantify her urine output and she is chronically incontinent, but the nurses feel th at she is making a normal amount of urine based on diaper changes. She is at risk for ongoing dehydr ation due to her large amount of liquid stool output and I am going to keep her in the hospital today for ongoing IV hydration. We will see how she tolerates her oral intake and once this improves, we will likely stop the IV fluids. I am going to check a TSH to make sure that her thyroid function is normal. I have discussed her abdominal mass with the radiologist and reviewed the images with multip chilo members of the radiology department. They feel that it is most likely an omental infarct, but chris l that a PET scan would be helpful. This is sensitive for sarcoma then would be expected to be posit lucinda in the event of a sarcoma. If it is equivocal, then she may require further evaluation and I amy camejo refer her to a oncologic surgeon to coordinate this. I discussed the plan of care with the wicho urbina and her family and they are in agreement. I am also going to send off her prealbumin as I suspect that despite her morbid obesity, she likely has at least protein malnutrition given her ongoing heali ng problems. I have ordered liquid supplements for her nutrition as well.
[2017-04-09] MEDS: Acetaminophen 325 MG TAB PO PRN (21:04)
[2017-04-10] MEDS: Levothyroxine Sodium 100 MCG TAB PO SCH (05:24)
[2017-04-10 08:19] VITALS: BP 161/71; TEMP 97.6
[2017-04-10] MEDS: Metoprolol Tartrate 25 MG TAB PO SCH (10:09)
[2017-04-10] MEDS: Amlodipine 10 MG TAB PO SCH (10:09)
[2017-04-10] MEDS: Leflunomide 10 mg Tablet PO SCH (10:11)
[2017-04-10] MEDS: Hydrocortisone Sod Succ/PF 100 mg/2 ml Vial IVP SCH (10:11)
[2017-04-10] MEDS: Hydroxychloroquine Sulfate 200 MG TAB PO SCH (10:11)
[2017-04-10] MEDS: Sodium Chloride 0.9% 1,000 ML IV SCH (10:15)
[2017-04-10] MEDS: Acetaminophen 325 MG TAB PO PRN (10:15)
== END 2017-04-10 14:34 | disposition home health service (06) | DRG 392 ==
LOC: ERS 18:35 → INTOOBSV 23:13 → ONC 23:13 → OBSVTOIN 04-09 15:14
PROVIDERS: ADMIT Surgery; ATTEND Surgery
DX: A08.4 Viral intestinal infection, unspecified (principal); J44.9 Chronic obstructive pulmonary disease, unspecified; E66.01 Morbid (severe) obesity due to excess calories; Z90.49 Acquired absence of other specified parts of digestive tract; Z93.3 Colostomy status; E86.0 Dehydration; Z85.43 Personal history of malignant neoplasm of ovary; Z90.721 Acquired absence of ovaries, unilateral; Z68.37 Body mass index [BMI] 37.0-37.9, adult; Z86.73 Personal history of transient ischemic attack (TIA), and cerebral infarction without residual deficits; M06.9 Rheumatoid arthritis, unspecified; Z79.52 Long term (current) use of systemic steroids; E03.9 Hypothyroidism, unspecified; I10 Essential (primary) hypertension; F17.210 Nicotine dependence, cigarettes, uncomplicated; N28.9 Disorder of kidney and ureter, unspecified; F41.9 Anxiety disorder, unspecified; F32.9 Major depressive disorder, single episode, unspecified; R32 Unspecified urinary incontinence
CPT/HCPCS: 36415; 74022; 80048; 80053; 82274; 82533; 83605; 83690; 84134; 84443; 85025; 87040; 87045; 87046; 87324; 87449; 87899; 93005; 94760; 96361; 96374; A4216; J1720; J2405

== ENCOUNTER 2017-04-22 11:12 | Outpatient (CLI) | payer MEDICARE, MEDICAID ==
--- NOTE | 2017-04-22 14:55 | PET ---
PET CT: HISTORY: 66-year-old female with history of ovarian cancer and right abdominal mass. Exam requested for stagin g. TECHNIQUE: PET scanning with CT attenuation correction was performed from the base of the brain through the prox imal thighs following the intravenous administration of 10.2 mCi F18-FDG in the right antecubital fos sa. Imaging was performed after an uptake interval of 48 minutes. COMPARISON: None. CORRELATION: CT abdomen and pelvis dated 04/04/17 and 03/12/17. FINDINGS: No edis hypermetabolism is seen in the neck, chest, axilla, abdomen, or pelvis. No hypermetabolic pu lmonary nodules, liver, adrenal, or skeletal lesions are seen. There is peripheral FDG localization in the right lower quadrant abdominopelvic mass with a maximum S UV of 7.6. There is increased uptake in the lower anterior abdominal wall abscess with a SUV of 7.5. There is physiologic activity in the GI and tracts, and visualized portions of the brain. The CT scan used for attenuation correction demonstrates no evidence of pleural effusions or ascites. IMPRESSION: Findings are suspicious for right abdominopelvic malignancy. No evidence of distant metastatic diseas e. POS: [facility]
== END 2017-04-22 11:13 | disposition home or self-care (01) ==
LOC: PET 11:12
PROVIDERS: ATTEND Surgery
DX: R19.00 Intra-abdominal and pelvic swelling, mass and lump, unspecified site (principal); Z85.43 Personal history of malignant neoplasm of ovary
CPT/HCPCS: 78815; A9552

== ENCOUNTER 2017-06-01 10:40 | Emergency (ER) | payer MEDICARE, MEDICAID ==
[2017-06-01 11:18] LABS: Bilirubin Negative (Negative); Blood, Urine Negative (Negative); Glucose, Urine (Dipstick) Negative (Negative); Leukocyte Negative (Negative); Nitrite Negative (Negative); Protein, Urine (Dipstick) 30 mg/dL (Neg-Trace); Specific Gravity, Urine 1.025 (1.005-1.030); Urobilinogen 0.2 mg/dL (0.2-1.0)
[2017-06-01 11:21] LABS: #Basophils 0.1 thou/uL (0.0-0.2); #Eosinphils 0.2 thou/uL (0.0-0.7); #Lymphocytes 2.5 thou/uL (1.20-3.40); #Monocytes 0.7 thou/uL (0.11-0.59); #Neutrophils 6.1 thou/uL (1.40-6.50); %Basophils 0.9 % (0.0-1.0); %Lymphocytes 26.4 % (21.0-51.0); %Monocytes 7.3 % (0.0-10.0); %Neutrophils 63.4 % (42.0-75.0); Hemoglobin 13.4 g/dL (12.0-16.0); Mean Corpuscular HGB CONC 31.3 g/dL (32.0-36.0); Mean Corpuscular Hemoglobin 27.6 pg (27.0-31.0); Mean Corpuscular Volume 88.2 fl (81.0-99.0); Platelet Count 309 thou/uL (130-400); RBC Distribution Width 16.7 % (11.5-14.5); Red Blood Cell (RBC) Count 4.85 mill/uL (4.20-5.40); White Blood Cell (WBC) Count 9.6 thou/uL (4.8-10.8)
[2017-06-01 11:26] LABS: Clarity CLEAR (Clear)
[2017-06-01 11:38] LABS: Bacteria/HPF None Seen HPF (None Seen); RBC/HPF None Seen HPF (0-3); Squamous Epithelial 0-3 HPF (0-3); WBC/HPF 0-3 HPF (0-3)
[2017-06-01] MEDS ORDERED: Morphine 4 MG/ML VIAL ONE (11:41)
[2017-06-01 11:50] LABS: ALT (SGPT) 9 U/L (8-55); AST (SGOT) 19 U/L (5-34); Albumin 3.8 g/dL (3.4-4.8); Alkaline Phosphatase 95 U/L (40-150); Anion Gap 19 mmol/L (10-20); BUN (Urea Nitrogen) 14 mg/dL (9.8-20.1); Bilirubin, Total 0.4 mg/dL (0.2-1.2); Calc. Creatinine Clearance 0 mL/min (70-130); Calcium 9.8 mg/dL (7.8-10.44); Carbon Dioxide 20 mmol/L (23-31); Chloride 102 mmol/L (98-107); Estimated GFR-MDRD 47; Globulin 4.9 g/dL (2.4-3.5); Glucose 96 mg/dL (80-115); Potassium 5.2 mmol/L (3.5-5.1); Protein, Total 8.7 g/dL (6.0-8.3); Sodium 136 mmol/L (136-145)
--- NOTE | 2017-06-01 13:24 | CT ---
CT ABDOMEN AND PELVIS WITH CONTRAST: Date: 06/01/17 HISTORY: Small bowel obstruction. Sharp, stabbing pain. COMPARISON: CT dated 04/04/17. FINDINGS: Lung bases are clear. No pericardial effusion. Right lower quadrant colostomy is present. There is an incisional hernia in midline containing bowel, with some packing material on midline woun d. The right-sided lower abdominal mass is slightly decreased in size, measuring 6.3 x 5.0 x 4.2 cm. Advanced degenerative disc space height loss at L4-5 with end plate sclerosis and osteophyte formatio n. The bones are osteopenic. There are no dilated air-filled loops of large or small bowel. No evidence for bowel obstruction. IMPRESSION: 1. Overall, from the 04/04/17 examination, there is size decrease of right lower abdominal mass. No acute inflammatory process in the abdomen or pelvis. 2. No evidence for bowel obstruction. 3. Midline incisional hernia containing loops of small bowel without evidence of obstruction. POS: [facility]
[2017-06-01] MEDS ORDERED: ISOVUE-370 76%-LOCM 1 ML ONE (16:54)
[2017-06-01] MEDS ORDERED: Iopamidol 370 76% 50 ML VIAL FS ONE (16:54)
== END 2017-06-01 13:50 | disposition home or self-care (01) ==
LOC: ERS 10:40
DX: R10.9 Unspecified abdominal pain (principal); E66.01 Morbid (severe) obesity due to excess calories; E03.9 Hypothyroidism, unspecified; I10 Essential (primary) hypertension; Z86.73 Personal history of transient ischemic attack (TIA), and cerebral infarction without residual deficits; F41.9 Anxiety disorder, unspecified; F32.9 Major depressive disorder, single episode, unspecified; F17.210 Nicotine dependence, cigarettes, uncomplicated; Z79.899 Other long term (current) drug therapy
CPT/HCPCS: 74177; 80053; 81003; 81015; 85025; 96374; J2270

== ENCOUNTER → 2017-08-16 | Day surgery (SDC) | payer MEDICARE, MEDICAID ==
[~2017-08-16] MED LIST: Heparin 1,000 UNITS/ML VIAL ONE
--- NOTE | 2017-08-16 10:11 | SPC ---
ULTRASOUND GUIDED LEFT UPPER EXTREMITY PICC PLACEMENT: Date: 08/16/17 HISTORY: MRSA, abdominal infection, in need of IV antibiotics. FINDINGS: Informed consent was obtained prior to the procedure. Left antecubital fossa was prepped and draped in the normal sterile fashion and anesthetized with 1% buffered lidocaine. With direct sonographic guidance, vascular access was obtained via the left basilic vein, and a .018 wire was advanced to the IVC, subsequently retracted to the cavoatrial junction. Intravascular length was calculated at 44 cm and the PICC was cut accordingly. The needle was removed and replaced with a peel-away sheath. The catheter was advanced over the wire. Wire and peel-away sheath were removed. T he catheter flushes well and is ready for use. EXPOSURE DATA: 0.0 minutes of fluoroscopic time, 924 mGy*cm^2. IMPRESSION: Successful ultrasound guided left upper extremity PICC placement. POS: [facility]
== END ==
LOC: SPEC 08:34
PROVIDERS: ATTEND Internal Medicine Infectious Disease
PROC: 05HY33Z Insertion of Infusion Device into Upper Vein, Percutaneous Approach (ICD-10-PCS; principal; 2017-08-16)
PROC: 3E03329 Introduction of Other Anti-infective into Peripheral Vein, Percutaneous Approach (ICD-10-PCS; 2017-08-16)
DX: A49.02 Methicillin resistant Staphylococcus aureus infection, unspecified site (principal)
CPT/HCPCS: 36569; J1644

== ENCOUNTER 2017-08-29 14:09 | Emergency (ER) | payer MEDICARE, MEDICAID ==
[2017-08-29 15:37] LABS: #Basophils 0.1 thou/uL (0.0-0.2); #Eosinphils 0.3 thou/uL (0.0-0.7); #Lymphocytes 1.3 thou/uL (1.20-3.40); #Monocytes 0.5 thou/uL (0.11-0.59); #Neutrophils 5.8 thou/uL (1.40-6.50); %Basophils 0.9 % (0.0-1.0); %Eosinophils 3.4 % (0.0-10.0); %Lymphocytes 16.1 % (21.0-51.0); %Monocytes 6.4 % (0.0-10.0); %Neutrophils 73.1 % (42.0-75.0); Hemoglobin 13.5 g/dL (12.0-16.0); Mean Corpuscular HGB CONC 32.5 g/dL (32.0-36.0); Mean Corpuscular Hemoglobin 28.8 pg (27.0-31.0); Mean Corpuscular Volume 88.8 fl (81.0-99.0); Mean Platelet Volume 8.7 fL (7.4-10.4); Platelet Count 202 thou/uL (130-400); RBC Distribution Width 15.4 % (11.5-14.5); Red Blood Cell (RBC) Count 4.69 mill/uL (4.20-5.40); White Blood Cell (WBC) Count 7.9 thou/uL (4.8-10.8)
[2017-08-29 15:51] LABS: ALT (SGPT) 13 U/L (8-55); AST (SGOT) 18 U/L (5-34); Albumin 3.7 g/dL (3.4-4.8); Alkaline Phosphatase 77 U/L (40-150); Anion Gap 15 mmol/L (10-20); BUN (Urea Nitrogen) 11 mg/dL (9.8-20.1); Bilirubin, Total 0.5 mg/dL (0.2-1.2); Calc. Creatinine Clearance 0 mL/min (70-130); Calcium 9.1 mg/dL (7.8-10.44); Carbon Dioxide 20 mmol/L (23-31); Chloride 108 mmol/L (98-107); Estimated GFR-MDRD 63; Globulin 3.6 g/dL (2.4-3.5); Glucose 97 mg/dL (80-115); Potassium 4.6 mmol/L (3.5-5.1); Protein, Total 7.3 g/dL (6.0-8.3); Sodium 138 mmol/L (136-145)
== END 2017-08-29 18:35 | disposition home or self-care (01) ==
LOC: ERS 14:09
DX: L25.9 Unspecified contact dermatitis, unspecified cause (principal); E03.9 Hypothyroidism, unspecified; I10 Essential (primary) hypertension; Z86.73 Personal history of transient ischemic attack (TIA), and cerebral infarction without residual deficits; F41.9 Anxiety disorder, unspecified; F32.9 Major depressive disorder, single episode, unspecified; F17.210 Nicotine dependence, cigarettes, uncomplicated; Z79.899 Other long term (current) drug therapy
CPT/HCPCS: 36415; 80053; 83605; 85025; 87040; 99283

== ENCOUNTER 2017-09-14 08:00 | Outpatient (CLI) | payer MEDICARE, MEDICAID ==
[2017-09-14] MEDS ORDERED: Iopamidol 370 76% 100 ML VIAL ONE (10:36)
--- NOTE | 2017-09-14 11:00 | CT ---
ABDOMEN AND PELVIS CT WITH CONTRAST: COMPARISON: 06/01/17. INDICATION: Abdominal abscess, followup. FINDINGS: Prior inflammatory fluid collection of the right lower abdomen, anteriorly, has decreased in volume w ith mild residua remaining. This does reside adjacent a wide-necked bowel containing hernia. No ass ociated bowel obstruction. The solid abdominal organs revealed no interval acute pathology. No pneu moperitoneum. Scattered vascular disease is present. There is no significant pathology at the image d lung base. Scattered osseous degenerative change is present. Redemonstration of bilateral renal c alcification which is predominantly vascular in location. Right lower quadrant ostomy is again seen. IMPRESSION: Interval improvement with near-complete resolution of prior inflammatory fluid collection of the righ t lower abdomen. Mild residua does remain. Additional details are described above. POS: [facility]
== END 2017-09-14 08:01 | disposition home or self-care (01) ==
LOC: CT 08:00
PROVIDERS: ATTEND Internal Medicine Infectious Disease
DX: L02.211 Cutaneous abscess of abdominal wall (principal); M19.90 Unspecified osteoarthritis, unspecified site; Z93.3 Colostomy status; Z93.1 Gastrostomy status
CPT/HCPCS: 74177; 82565

== ENCOUNTER 2017-10-21 08:08 | Outpatient (CLI) | payer MEDICARE, MEDICAID ==
--- NOTE | 2017-10-21 08:34 | RAD ---
LUMBAR SPINE SERIES THREE VIEWS: HISTORY: Low back pain. FINDINGS: There are severe arthritic changes of the spine. There are prominent osteophytic changes noted. The re is severe disk narrowing at L4-L5 and vacuum disk phenomenon. Mild disk narrowing at L1-L2 and L2 -L3. Extensive vascular calcifications are noted. IMPRESSION: Severe arthritic changes of the spine. POS: [facility]
== END 2017-10-21 08:09 | disposition home or self-care (01) ==
LOC: RAD-FRANK 08:08
PROVIDERS: ATTEND Nurse Practitioner Family
DX: M54.5 Low back pain (principal); M46.96 Unspecified inflammatory spondylopathy, lumbar region
CPT/HCPCS: 72100

== ENCOUNTER 2017-11-07 19:11 | Emergency (ER) | payer MEDICARE, OTHER ==
--- NOTE | 2017-11-07 20:58 | RAD ---
RIGHT HAND THREE VIEWS: 11/07/2017 HISTORY: Injury to right middle finger after smashing middle finger in wheelchair. FINDINGS: There is osteopenia present. There is joint space narrowing, much greater involving the metatarsopha langeal joints of the second and third metacarpophalangeal joints. There are erosions seen involving the metatarsophalangeal joints of the second and third digits, as well as involving the carpal bones and the distal radius and ulna. Prominent erosions are seen throughout the carpal bones, and there is collapse of the lunate bone and widening of the scapholunate distance. There also appears to be f oreshortening of the scaphoid bone as well, with prominent erosions involving the bases of the metaca rpals. Diffuse osteopenia is present. There are osseous densities adjacent to the distal ulna, whic h may represent a remote avulsion fracture. No acute fracture or dislocation is identified. IMPRESSION: 1. Diffuse osteopenia and scattered erosions and joint space narrowing. Findings may be related to rheumatoid arthritis. 2. No acute fracture or dislocation is seen. POS: [facility]
== END 2017-11-07 21:16 | disposition home or self-care (01) ==
LOC: ERS 19:11
DX: S61.212A Laceration without foreign body of right middle finger without damage to nail, initial encounter (principal); E03.9 Hypothyroidism, unspecified; I10 Essential (primary) hypertension; Z86.73 Personal history of transient ischemic attack (TIA), and cerebral infarction without residual deficits; F17.210 Nicotine dependence, cigarettes, uncomplicated; Z79.899 Other long term (current) drug therapy; W23.0XXA Caught, crushed, jammed, or pinched between moving objects, initial encounter
CPT/HCPCS: 12001

== ENCOUNTER 2018-08-10 10:15 | Emergency (ER) | payer MEDICARE, MEDICAID ==
[2018-08-10] MEDS ORDERED: ISOVUE-370 76%-LOCM 1 ML ONE (11:27)
[2018-08-10 11:48] LABS: Hemoglobin 13.8 g/dL (12.0-16.0); Mean Corpuscular HGB CONC 33.1 g/dL (32.0-36.0); Mean Corpuscular Hemoglobin 28.1 pg (27.0-31.0); Mean Corpuscular Volume 84.8 fL (78.0-98.0); Mean Platelet Volume 9.3 fL (7.4-10.4); Platelet Count 316 thou/uL (130-400); RBC Distribution Width 14.8 % (11.5-14.5); Red Blood Cell (RBC) Count 4.93 mill/uL (4.20-5.40); White Blood Cell (WBC) Count 13.7 thou/uL (4.8-10.8)
[2018-08-10 12:02] LABS: ALT (SGPT) Less than 7 U/L (8-55); AST (SGOT) 14 U/L (5-34); Albumin 3.6 g/dL (3.4-4.8); Alkaline Phosphatase 129 U/L (40-150); Anion Gap 17 mmol/L (10-20); BUN (Urea Nitrogen) 23 mg/dL (9.8-20.1); Bilirubin, Total 0.6 mg/dL (0.2-1.2); Calc. Creatinine Clearance 0 mL/min (70-130); Calcium 9.2 mg/dL (7.8-10.44); Carbon Dioxide 18 mmol/L (23-31); Chloride 98 mmol/L (98-107); Estimated GFR-MDRD 42; Globulin 4.5 g/dL (2.4-3.5); Glucose 85 mg/dL (80-115); Potassium 4.1 mmol/L (3.5-5.1); Protein, Total 8.1 g/dL (6.0-8.3); Sodium 129 mmol/L (136-145)
[2018-08-10 12:09] LABS: Band 25 % (5-11); Eosinophils 2 % (0-10); Lymphocytes 11 % (21-51); MDiff Complete? YES; Monocytes 1 % (0-10); Neutrophil 60 % (42-75); RBC Morphology Normal
[2018-08-10] MEDS ORDERED: Morphine 4 MG/ML VIAL ONE ×2 (13:06→15:07)
--- NOTE | 2018-08-10 13:14 | CT ---
CT THORAX WITH CONTRAST CT ABDOMEN WITH CONTRAST CT PELVIS WITH CONTRAST: DATE: 08/10/2018 HISTORY: 68-year-old female status post surgical repair of ventral abdominal hernia. Pain and nausea at the pineda rgical wound. COMPARISON: 09/14/2017 TECHNIQUE: IV iodinated contrast media: Administered Oral contrast media: Not administered Single phase scans of thorax, abdomen, and pelvis. FINDINGS: The ascending colon distally terminates in a colostomy at the right mid abdomen. The left distal transverse colon medial edge apparently terminates in a blind sac. It communicates wi th the splenic flexure, descending colon, sigmoid colon, and rectum. Numerous sigmoid colonic diverticula without diverticulitis. Through a 8 cm transverse wide diastases between the left and right rectus abdominis muscles, intrape ritoneal fat and multiple small bowel loops herniate ventrally at midline into the subcutaneous fat, as previously demonstrated. Size of the hernia sac is approximately 13.5 x 13.5 x 6 cm, similar to or minimally larger than previously. No evidence of strangulation or obstruction. No small bowel dilation. At the inferior edge of this hernia sac, there is postsurgical scar in the midline superficial fat an terior to the lower abdominal wall at the level of the pelvis. This contains a small, approximately 2 cm wide region of low attenuation questionable for fluid, new. Questionable developing phlegmon or tiny new abscess. To the left of that and inferior to that, there is a 2.5 x 3.5 x 7.5 cm soft tissue attenuation ill-d efined mass surrounded by fat stranding/infiltrate, in the subcutaneous fat of the abdominal pannus in this obese individual. This is new since the prior study, and it is contiguous with the ventral wo und inferior to the hernia sac. This is also new, and could represent cellulitis and phlegmon versus hematoma. Diffuse mild mural thickening of the urinary bladder, nonspecific. Heavy atherosclerotic calcific pat ient of abdominal aorta without aneurysm. No hydronephrosis, adrenal nodule, pancreatitis, or any major abnormality with liver or spleen. No ascites or pneumoperitoneum. No pleural effusion. IMPRESSION: 1) somewhat large ventral hernia containing small bowel. 2) at the inferior edge of that, the surgical wound/scar has developed a small area of low attenuatio n centrally, questionable for small infection. This is not amenable to percutaneous drainage. 3) lateral and to the left of that, there is a new large mass with surrounding infiltrate in the abdo elida pannus. This could be phlegmon of cellulitis versus hematoma. 4) right-sided colostomy.
[2018-08-10] MEDS ORDERED: Piperacillin/Tazobactam 4.5 GM VIAL ONE (14:06)
[2018-08-10] MEDS ORDERED: Lidocaine 1% (PF) 30 ML VIAL ONE (15:07)
[2018-08-10] MEDS ORDERED: Lidocaine 1% w/Epinephrine 1:100K 20 ML VIAL ONE (15:12)
[2018-08-10 15:19] LABS: Lactic Acid 1.3 mmol/L (0.5-2.2)
--- NOTE | 2018-08-10 21:06 | HP ---
Christel Bernard is a 68-year-old female, morbidly obese, who has a colostomy that she reports is permanent that Dr. Otero formed due to complications of an incisional hernia. She is morbidly obese. She has developed an abscess in her left lower quadrant pannus. I was called by the emergency room to evaluate this and admit her. I have reported her at bedside and indeed she does have a large abscess. There is no evidence of necrotizing fasciitis. Plan is to drain this at the bedside. She understands risks, benefits, and consents. Job ID: [id number]
--- NOTE | 2018-08-11 11:35 | OP ---
DATE OF PROCEDURE: 08/10/2018 PREOPERATIVE DIAGNOSES: Morbid obesity, permanent colostomy, large abscess, and left lower quadrant pannus. POSTOPERATIVE DIAGNOSES: Morbid obesity, permanent colostomy, large abscess, and left lower quadrant pannus. DESCRIPTION OF PROCEDURE: In the emergency room at her bedside, the area was prepared with alcohol. 1% Xylocaine with epinephrine was infiltrated in the skin and subcutaneous tissue. Incision was made about 8 cm down to skin and subcutaneous tissue excising necrotic skin and draining large abscess, sent it for culture and sensitivity. Large amount of purulent material evacuated. The patient had gauze dressing packed into the wound. Sterile dressing applied. The patient tolerated the procedure well. Ms. Bernard has a daughter who lives with her and her daughter is willing to do the wound care and has done this in the past. She was instructed on normal saline wet-to-dry dressings and they were given her supplies. The patient had a CAT scan prior to this procedure indicating this abscess to be localized to the abdominal wall pannus. She will follow up to see me next week or Dr. Otero in the next week. Job ID: [id number]
== END 2018-08-10 16:07 | disposition home or self-care (01) ==
LOC: ERS 10:15
DX: L02.211 Cutaneous abscess of abdominal wall (principal); L03.311 Cellulitis of abdominal wall; Z71.6 Tobacco abuse counseling; E03.9 Hypothyroidism, unspecified; I10 Essential (primary) hypertension; Z86.73 Personal history of transient ischemic attack (TIA), and cerebral infarction without residual deficits; F41.9 Anxiety disorder, unspecified; F32.9 Major depressive disorder, single episode, unspecified; F17.210 Nicotine dependence, cigarettes, uncomplicated; Z79.899 Other long term (current) drug therapy
CPT/HCPCS: 36415; 74177; 80053; 83605; 85025; 87040; 96361; 96365; 96367; 96375; 96376; J2001; J2270; J2543; J3370; Q9966